=== PATIENT | female | born 1980 | race Caucasian/White ===

== ENCOUNTER 2022-09-28 11:09 | Outpatient (CLI) | payer BC, SELFPAY ==
[2022-09-28 18:50] LABS: Free T4 Free Thyroxine 1.22 ng/mL (0.78-2.19)
[2022-09-28 19:34] LABS: Alanine Aminotransferase 18 U/L (6-35); Albumin Level 4.3 g/dL (3.5-5.1); Alkaline Phosphatase 112 U/L (38-126); Anion Gap 10 mmol/L (8-16); Aspartate Amino Transferase 32 U/L (14-36); Bilirubin,Total 0.8 mg/dL (0.2-1.3); Blood Urea Nitrogen 11 mg/dL (7-17); Calcium 8.8 mg/dL (8.4-10.2); Carbon Dioxide 24 mmol/L (22-30); Chloride 101 mmol/L (98-107); Cholesterol 248 mg/dL (0-200); Estimated Glomerular Filt Rate > 60; Glucose 110 mg/dL (65-110); HDL Direct 55 mg/dL; Potassium 3.7 mmol/L (3.4-5.0); Sodium 135 mmol/L (137-145); Triglycerides 241 mg/dL (<150)
[2022-09-28 19:44] LABS: LDL Cholesterol Direct 140 mg/dL
== END 2022-09-28 11:10 | disposition home or self-care (01) ==
LOC: ANHGOSHLAB 11:11
PROVIDERS: PCP Family Medicine; Visit Provider Family Medicine
DX: E03.9 Hypothyroidism, unspecified (principal); E66.9 Obesity, unspecified; Z79.899 Other long term (current) drug therapy
CPT/HCPCS: 36415; 80053; 80061; 84439; 84443

== ENCOUNTER 2022-12-02 16:37 | Outpatient (CLI) | payer BC, SELFPAY ==
--- NOTE | ~2022-12-02 | MM_ITS ---
EXAMINATION: MM screening tiffany BI w rodolfo HISTORY: Screening TECHNIQUE: Craniocaudal and mediolateral oblique 3-D tomosynthesis images were obtained and synthetic 2-D images were generated. CAD analysis was submitted and interpreted. COMPARISON: No prior mammogram is available for comparison at this institution. BREAST PARENCHYMAL COMPOSITION: The breasts are almost entirely fatty. FINDINGS: There is no evidence of suspicious mass, calcification, or architectural distortion to sugg est malignancy in either breast. There has been no suspicious interval change. IMPRESSION: 1. No mammographic evidence of malignancy. 2. Recommend routine screening mammography in one year. BI-RADS Category 1: Negative Reviewed, dictated and finalized at location A. MINING ANALYST
== END 2022-12-02 16:38 | disposition home or self-care (01) ==
PROVIDERS: Visit Provider Family Medicine
DX: Z12.31 Encounter for screening mammogram for malignant neoplasm of breast (principal)
CPT/HCPCS: 77063; 77067

== ENCOUNTER 2022-12-10 08:54 | Outpatient (CLI) | payer BC, SELFPAY ==
--- NOTE | ~2022-12-10 | CT_ITS ---
CT Abdomen and Pelvis with contrast. History: Abdominal pain. Spiral CT of the abdomen and pelvis was performed after the administration of intravenous contrast. 1 00 cc of Omnipaque 350 was administered intravenously without complication. Dose reduction technique was used on this scan by utilizing automated exposure control and iterative reconstruction technique. The dose-length product (DLP) was 890.02 mGy-cm. Findings: Scans through the lung bases demonstrate mild atelectatic change. The liver, spleen, pancreas, adrenals and kidneys are within normal limits. Gallbladder is absent. No evidence of aortic aneurysm. No lymphadenopathy is seen. There is no evidence of bowel obstruction. There is no evidence to suggest acute appendicitis or dive rticulitis. Images through the pelvis were performed. Urinary bladder unremarkable. Patient is post hysterectomy. No pelvic mass identified. No ascites is seen. Impression: No significant abnormalities seen. Reviewed, dictated and finalized at [facility]. 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
== END 2022-12-10 08:55 | disposition home or self-care (01) ==
PROVIDERS: PCP Family Medicine; Visit Provider Family Medicine
DX: R10.30 Lower abdominal pain, unspecified (principal)
CPT/HCPCS: 74177; Q9967

== ENCOUNTER 2023-01-19 08:24 | Outpatient (CLI) | payer BC, SELFPAY ==
[2023-01-19 20:19] LABS: Alanine Aminotransferase 19 U/L (6-35); Albumin Level 4.1 g/dL (3.5-5.1); Alkaline Phosphatase 104 U/L (38-126); Anion Gap 8 mmol/L (8-16); Aspartate Amino Transferase 45 U/L (14-36); Bilirubin,Total 0.6 mg/dL (0.2-1.3); Blood Urea Nitrogen 12 mg/dL (7-17); Calcium 8.8 mg/dL (8.4-10.2); Carbon Dioxide 27 mmol/L (22-30); Chloride 101 mmol/L (98-107); Cholesterol 241 mg/dL (0-200); Estimated Glomerular Filt Rate > 60; Glucose 88 mg/dL (65-110); HDL Direct 40 mg/dL; Potassium 4.1 mmol/L (3.4-5.0); Sodium 136 mmol/L (137-145); Triglycerides 329 mg/dL (<150)
[2023-01-19 20:30] LABS: LDL Cholesterol Direct 123 mg/dL
[2023-01-19 21:21] LABS: Free T4 Free Thyroxine 1.17 ng/mL (0.78-2.19)
[2023-01-22 18:10] LABS: Gliadin AB, IgG <1.0 U/mL (<15.0); TTG IGA AB <1.0 U/mL (<15.0)
== END 2023-01-19 08:25 | disposition home or self-care (01) ==
LOC: ANHGOSHLAB 08:26
PROVIDERS: PCP Family Medicine; Visit Provider Nurse Practitioner Family
DX: R19.7 Diarrhea, unspecified (principal); E03.9 Hypothyroidism, unspecified; Z79.899 Other long term (current) drug therapy; E66.9 Obesity, unspecified
CPT/HCPCS: 36415; 80053; 80061; 83516; 84439; 84443; 86255

== ENCOUNTER 2023-01-31 00:40 | Day surgery (SDC) | payer BC, SELFPAY ==
[2023-01-19 13:36] VITALS: BMI 32.8
[2023-01-31 11:19] VITALS: BP 133/90; PULSE 77; RESP 18; TEMP 36.3; O2SAT 100; BMI 34.9
[2023-01-31] MEDS: LACTATED RINGERS 1,000 ML 150 ML IV CONT (11:27)
--- NOTE | 2023-01-31 11:43 | WPDANESEPPF ---
Anes - Initial Pre Proc Eval Procedure: Operation Date: 01/31/23 13:00 Proposed Procedures p Colonoscopy - Ji Gibson MD Date/Time: 01/31/23 11:43 Surgeon: Ji Gibson MD Pre Op Diagnosis: bilateral lower abdominal pain, diarrhea Patient Data Age: 42 Gender: F Height: 1.7 m Weight: 101.1 kg Last Vital Signs Temp 36.3 C L 01/31/23 11:19 Pulse 77 01/31/23 11:19 Resp 18 01/31/23 11:19 BP 133/90 01/31/23 11:19 Pulse Ox 100 01/31/23 11:19 O2 Del Method Room Air 01/31/23 11:19 Allergies Allergy/AdvReac Type Severity Reaction Status Date / Time erythromycin base AdvReac Severe Vomiting Verified 01/31/23 11:17 anesthesia Allergy Severe Unresponsiv Uncoded 01/19/23 13:30 e Home Medications Medication Instructions Recorded Confirmed Type albuterol sulfate 90 mcg/actuation 1 puff inhalation Q4H PRN 09/23/22 01/31/23 History aerosol inhaler Shortness Of Breath levothyroxine 75 mcg capsule 75 mcg PO DAILY #90 caps 10/07/22 01/31/23 Rx omeprazole 20 mg capsule,delayed 20 mg PO DAILY #60 caps 12/17/22 01/31/23 Rx release cholestyramine (with sugar) 4 gram 4 g PO BID diarrhea #378 grams 12/28/22 01/31/23 Rx oral powder dicyclomine 20 mg tablet 20 mg PO QID PRN abdominal pain 12/28/22 01/31/23 Rx #90 tabs estradiol 1 mg tablet 1 mg PO DAILY #90 tabs 01/10/23 01/31/23 Rx Patient hx anesthesia problems: none Family hx anesthesia problems: none Results Review: All pre-operative results and documents have been reviewed as part of the pre-operative evaluation. [facility] Past Medical History Medical History Asthma Thyroid disorder Surgical History Surgical History H/O eye surgery H/O: hysterectomy History of cholecystectomy Family History Family History Father Diabetes mellitus Hypertension Mother Breast cancer Depression Anxiety Thyroid disease Grandparent Hypertension Heart disease Cerebrovascular accident Social History Social History Smoking status: Never smoker Alcohol intake: current Alcohol use details: socially Substance use: never Substance use type: does not use Lack of Transportation: No Lack of Food: Never True Current Housing: I Have Housing Concerned About Future Housing: No Difficulty Paying Gas/Electric Bills: No Difficulty Paying for Meds: No Currently Unemployed: No Education: Master's Degree or Higher Difficulty w/ Childcare or Family Care: No Living arrangements: alone 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 Informed Consent: The patient's anesthetic plan and its attendant risks and benefits were discussed with the patient/family/POA. Questions were solicited and answers provided to the satisfaction of the patient/family/POA.
--- NOTE | 2023-01-31 12:35 | PM.HPGS ---
History of Present Illness History of Present Illness Consent: Risks, benefits, and alternatives have been discussed and questions answered. Patient agrees to proceed with procedure. Chief complaint: bilateral lower abdominal pain, diarrhea Narrative: Antonette Campbell is a 42 year old female here for first colonoscopy, had intermittent episodes of severe lower abdominal pain and diarrhea, prescribed bentyl but has not had the chance to take it. Review of Systems Constitutional: Constitutional: Denies headache(s) and Denies weakness Eyes: Eyes: Denies blurry vision ENT: Reports Normal hearing present, Denies headache(s) and Denies neck pain Cardiovascular: Cardiovascular: Denies chest pain and Denies dyspnea Respiratory: Respiratory: Denies dyspnea Gastrointestinal: Gastrointestinal: Reports no additional gastrointestinal complaints Genitourinary: Genitourinary: Denies dysuria Musculoskeletal: Musculoskeletal: Denies neck pain Integumentary/Breasts: Skin/Breast: Denies dry skin Neurologic: Reports Normal hearing present, Denies headache(s) and Denies weakness Psychiatric: Psychiatric: Denies anxiety Endocrine: Endocrine: Denies change in body appearance Hematologic/Lymphatic: Hematologic/Lymphatic: Denies easy bleeding Allergic/Immunologic: Allergic/Immunologic: Denies urticaria PMFSH Past Medical History Medical History Asthma Thyroid disorder Surgical History Surgical History H/O eye surgery H/O: hysterectomy History of cholecystectomy Family History Family History Father Diabetes mellitus Hypertension Mother Breast cancer Depression Anxiety Thyroid disease Grandparent Hypertension Heart disease Cerebrovascular accident Social History Social History Smoking status: Never smoker Alcohol intake: current Alcohol use details: socially Substance use: never Substance use type: does not use Lack of Transportation: No Lack of Food: Never True Current Housing: I Have Housing Concerned About Future Housing: No Difficulty Paying Gas/Electric Bills: No Difficulty Paying for Meds: No Currently Unemployed: No Education: Master's Degree or Higher Difficulty w/ Childcare or Family Care: No Living arrangements: alone 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/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 Gender identity (if verbalized by the patient): Female Spiritual care concerns: No Agree to blood products: Yes Meds Home Medications and Allergies Home Medications Medication Instructions Recorded Confirmed Type albuterol sulfate 90 mcg/actuation 1 puff inhalation Q4H PRN 09/23/22 01/31/23 History aerosol inhaler Shortness Of Breath levothyroxine 75 mcg capsule 75 mcg PO DAILY #90 caps 10/07/22 01/31/23 Rx omeprazole 20 mg capsule,delayed 20 mg PO DAILY #60 caps 12/17/22 01/31/23 Rx release cholestyramine (with sugar) 4 gram 4 g PO BID diarrhea #378 grams 12/28/22 01/31/23 Rx oral powder dicyclomine 20 mg tablet 20 mg PO QID PRN abdominal pain 12/28/22 01/31/23 Rx #90 tabs estradiol 1 mg tablet 1 mg PO DAILY #90 tabs 01/10/23 01/31/23 Rx Allergies Allergy/AdvReac Type Severity Reaction Status Date / Time erythromycin base AdvReac Severe Vomiting Verified 01/31/23 11:17 anesthesia Allergy Severe Unresponsiv Uncoded 01/19/23 13:30 e Vital Signs Vital Signs - 24 hr 01/31/23 11:19 Temperature 97.3 F L Pulse Rate 77 Respiratory Rate 18 Blood Pressure 133/90 Pulse Oximetry 100 Oxygen Delivery Room Air Exam Const: General: comfortable and no acute distress HENMT: Face/Nose/Sinus: Normal nares present Eyes: General: appearance normal, both eyes and all related structures Neck: Neck: no JVD
[2023-01-31 12:51] VITALS: BP 111/83; PULSE 80; RESP 17; O2SAT 98
[2023-01-31 13:01] VITALS: BP 131/83; PULSE 72; RESP 22; O2SAT 98
[2023-01-31 13:11] VITALS: BP 125/85; PULSE 69; RESP 20; O2SAT 98
== END 2023-01-31 13:15 | disposition home or self-care (01) ==
PROVIDERS: PCP Family Medicine; Visit Provider Internal Medicine Gastroenterology
PROC: 0DJD8ZZ Inspection of Lower Intestinal Tract, Via Natural or Artificial Opening Endoscopic (ICD-10-PCS; CPT 45378; principal; 2023-01-31 13:00)
DX: R10.30 Lower abdominal pain, unspecified (principal); R19.7 Diarrhea, unspecified; K64.8 Other hemorrhoids; J45.909 Unspecified asthma, uncomplicated; Z90.49 Acquired absence of other specified parts of digestive tract
CPT/HCPCS: 45380; 88305; J2704; J7120

== ENCOUNTER 2023-04-28 10:44 | Outpatient (CLI) | payer BC, SELFPAY ==
[2023-04-28 17:00] LABS: Kit Draw Collected
== END 2023-04-28 10:45 | disposition home or self-care (01) ==
LOC: ANHGOSHLAB 10:46
PROVIDERS: PCP Family Medicine; Visit Provider Family Medicine
DX: D64.9 Anemia, unspecified (principal); E78.5 Hyperlipidemia, unspecified; E03.9 Hypothyroidism, unspecified; R74.8 Abnormal levels of other serum enzymes; Z79.899 Other long term (current) drug therapy
CPT/HCPCS: 36415

== ENCOUNTER 2023-05-09 13:34 | Outpatient (CLI) | payer BC, SELFPAY ==
--- NOTE | ~2023-05-09 | CT_ITS ---
Noncontrast CT scan of the right foot CLINICAL HISTORY: Fracture of navicular bone TECHNIQUE: Axial noncontrast imaging of the right foot performed. Sagittal and coronal reformatted im ages were constructed. Dose reduction technique was used on this scan by utilizing automated exposure control and iterative reconstruction technique. The dose-length product (DLP) was 362.83 mGy-cm. Findings: There is a fracture at the lateral aspect of the navicular bone, minimally displaced, witho ut definite callus formation. There is a large probable type II os navicular medially. Remaining osseous structures are unremarkable. Joint spaces are preserved. No gross soft tissue abnormality evident. IMPRESSION: Probable nearly nondisplaced fracture the lateral aspect of navicular bone, without significant callu s formation evident. Continued follow-up advised to assess for healing. Correlation with any prior ex aminations would be useful. No prior exams are available for comparison at this institution. Probable large type II os navicular. Reviewed, dictated and finalized at [facility]. IMPRESSION: Probable nearly nondisplaced fracture the lateral aspect of navicular bone, wit hout significant callus formation evident. Continued follow-up advised to asses s for healing. Correlation with any prior examinations would be useful. No prio r exams are available for comparison at this institution. Probable large type II os navicular.
== END 2023-05-09 13:35 | disposition home or self-care (01) ==
PROVIDERS: PCP Family Medicine; Visit Provider Podiatrist Foot & Ankle Surgery
DX: S92.251 Displaced fracture of navicular [scaphoid] of right foot (principal); X58.XXXD Exposure to other specified factors, subsequent encounter
CPT/HCPCS: 73700

== ENCOUNTER 2024-01-03 08:22 | Outpatient (CLI) | payer OTHER, SELFPAY ==
[2024-01-03 11:47] LABS: Alanine Aminotransferase 30 U/L (6-35); Alkaline Phosphatase 105 U/L (38-126); Anion Gap 7 mmol/L (8-16); Aspartate Amino Transferase 67 U/L (14-36); Bilirubin,Total 0.6 mg/dL (0.2-1.3); Blood Urea Nitrogen 11 mg/dL (7-17); Calcium 8.8 mg/dL (8.4-10.2); Carbon Dioxide 27 mmol/L (22-30); Chloride 104 mmol/L (98-107); Cholesterol 166 mg/dL (0-200); Estimated Glomerular Filt Rate > 60; Glucose 121 mg/dL (65-110); HDL Direct 39 mg/dL; Potassium 3.8 mmol/L (3.4-5.0); Sodium 138 mmol/L (137-145); Triglycerides 209 mg/dL (<150)
[2024-01-03 11:47] LABS: Hematocrit 46.4 % (37.0-47.0); Hemoglobin 14.9 g/dL (12.0-15.0); Mean Corpuscular HGB Conc 32.1 g/dl (32-36); Mean Corpuscular Hemoglobin 30.1 pg (26-34); Mean Corpuscular Volume 93.7 fl (80-100); Platelet Count Result 255 k/mm3 (150-375); Red Blood Count 4.95 M/mm3 (4.2-5.4); Red Cell Distribution Width 12.9 % (11.5-14.5); White Blood Count 6.5 K/mm3 (4.5-10.0)
[2024-01-03 11:57] LABS: LDL Cholesterol Direct 91 mg/dL
[2024-01-03 12:03] LABS: Vitamin D 25 Hydroxy 32.5 ng/mL
[2024-01-03 12:39] LABS: Hemoglobin A1C 6.4 % (<5.7)
== END 2024-01-03 08:23 | disposition home or self-care (01) ==
LOC: ANHGOSHLAB 08:23
PROVIDERS: PCP Family Medicine; Visit Provider Nurse Practitioner
DX: Z00.00 Encounter for general adult medical examination without abnormal findings (principal); E55.9 Vitamin D deficiency, unspecified
CPT/HCPCS: 36415; 80053; 80061; 82306; 83036; 84443; 85027

== ENCOUNTER 2024-01-04 14:53 | Outpatient (CLI) | payer OTHER, SELFPAY ==
--- NOTE | ~2024-01-04 | MM_ITS ---
EXAMINATION: MM screening tiffany BI w rodolfo HISTORY: Screening mammogram, family history of breast cancer in her mother. TECHNIQUE: Craniocaudal and mediolateral oblique 3-D tomosynthesis images were obtained and synthetic 2-D images were generated. CAD analysis was submitted and interpreted. COMPARISON: 12/02/2022 BREAST PARENCHYMAL COMPOSITION: The breasts are almost entirely fatty. FINDINGS: No suspicious mass, calcification, or architectural distortion are identified in either moisés ast to suggest malignancy. There has been no suspicious interval change. IMPRESSION: 1. No mammographic evidence of malignancy. 2. Recommend routine screening mammography in one year. BI-RADS Category 1: Negative Reviewed, dictated and finalized at location A. CLOTH INSPECTOR
== END 2024-01-04 14:54 | disposition home or self-care (01) ==
LOC: ANHIMG 14:55
PROVIDERS: PCP Family Medicine; Visit Provider Nurse Practitioner
DX: Z12.31 Encounter for screening mammogram for malignant neoplasm of breast (principal)
CPT/HCPCS: 77063; 77067

== ENCOUNTER 2024-03-27 09:04 | Outpatient (CLI) | payer OTHER, SELFPAY ==
[2024-03-27 13:58] LABS: Hematocrit 46.2 % (37.0-47.0); Hemoglobin 15.4 g/dL (12.0-15.0); Mean Corpuscular HGB Conc 33.3 g/dl (32-36); Mean Corpuscular Hemoglobin 30.4 pg (26-34); Mean Corpuscular Volume 91.3 fl (80-100); Mean Platelet Volume 10.8 fl (7.4-10.4); Platelet Count Result 259 k/mm3 (150-375); Red Blood Count 5.06 M/mm3 (4.2-5.4); White Blood Count 6.6 K/mm3 (4.5-10.0)
[2024-03-27 14:08] LABS: Alanine Aminotransferase 25 U/L (6-35); Albumin Level 4.1 g/dL (3.5-5.1); Alkaline Phosphatase 96 U/L (38-126); Anion Gap 4 mmol/L (4-12); Aspartate Amino Transferase 41 U/L (14-36); Bilirubin,Total 0.7 mg/dL (0.2-1.3); Blood Urea Nitrogen 14 mg/dL (7-17); Calcium 8.7 mg/dL (8.4-10.2); Carbon Dioxide 29 mmol/L (22-30); Chloride 103 mmol/L (98-107); Cholesterol 160 mg/dL (0-200); Estimated Glomerular Filt Rate > 60; Glucose 130 mg/dL (65-110); HDL Direct 47 mg/dL; Potassium 3.6 mmol/L (3.4-5.0); Sodium 136 mmol/L (137-145); Triglycerides 150 mg/dL (<150)
[2024-03-27 14:19] LABS: LDL Cholesterol Direct 102 mg/dL
[2024-03-27 14:57] LABS: Free T4 Free Thyroxine 1.26 ng/mL (0.78-2.19)
[2024-03-27 15:53] LABS: Hemoglobin A1C 6.2 % (<5.7)
[2024-03-30 18:04] LABS: Vitamin D 1,25 (OH)2 Total 61 pg/mL (18-72); Vitamin D2 1,25 (OH)2 10 pg/mL; Vitamin D3 1,25 (OH)2 51 pg/mL
== END 2024-03-27 09:05 | disposition home or self-care (01) ==
LOC: ANHGOSHLAB 09:06
PROVIDERS: PCP Family Medicine; Visit Provider Family Medicine
DX: E78.5 Hyperlipidemia, unspecified (principal); E03.9 Hypothyroidism, unspecified; E55.9 Vitamin D deficiency, unspecified; E66.9 Obesity, unspecified; R73.03 Prediabetes; R74.8 Abnormal levels of other serum enzymes; Z79.899 Other long term (current) drug therapy
CPT/HCPCS: 36415; 80053; 80061; 82652; 83036; 84439; 84443; 85027

== ENCOUNTER 2024-08-07 08:09 | Outpatient (CLI) | payer OTHER, SELFPAY ==
[2024-08-07 13:54] LABS: Hematocrit 46.3 % (37.0-47.0); Hemoglobin 15.2 g/dL (12.0-15.0); Mean Corpuscular HGB Conc 32.8 g/dl (32-36); Mean Corpuscular Hemoglobin 30.4 pg (26-34); Mean Corpuscular Volume 92.6 fl (80-100); Mean Platelet Volume 10.9 fl (7.4-10.4); Platelet Count Result 257 k/mm3 (150-375); Red Cell Distribution Width 13.2 % (11.5-14.5); White Blood Count 5.8 K/mm3 (4.5-10.0)
[2024-08-07 14:09] LABS: Hemoglobin A1C 6.5 % (<5.7)
[2024-08-07 14:28] LABS: Alanine Aminotransferase 31 U/L (6-35); Albumin Level 4.1 g/dL (3.5-5.1); Alkaline Phosphatase 116 U/L (38-126); Anion Gap 12 mmol/L (4-12); Aspartate Amino Transferase 64 U/L (14-36); Bilirubin,Total 0.7 mg/dL (0.2-1.3); Blood Urea Nitrogen 13 mg/dL (7-17); Calcium 8.7 mg/dL (8.4-10.2); Carbon Dioxide 23 mmol/L (22-30); Chloride 101 mmol/L (98-107); Cholesterol 163 mg/dL (0-200); Estimated Glomerular Filt Rate > 60; Glucose 135 mg/dL (65-110); HDL Direct 41 mg/dL; Potassium 3.3 mmol/L (3.4-5.0); Sodium 136 mmol/L (137-145); Triglycerides 223 mg/dL (<150)
[2024-08-07 14:39] LABS: LDL Cholesterol Direct 86 mg/dL
[2024-08-07 14:54] LABS: Free T4 Free Thyroxine 1.13 ng/mL (0.78-2.19)
[2024-08-10 21:29] LABS: Vitamin D 1,25 (OH)2 Total 57 pg/mL (18-72); Vitamin D2 1,25 (OH)2 <8 pg/mL; Vitamin D3 1,25 (OH)2 57 pg/mL
== END 2024-08-07 08:10 | disposition home or self-care (01) ==
LOC: ANHGOSHLAB 08:10
PROVIDERS: PCP Family Medicine; Visit Provider Family Medicine
DX: R73.01 Impaired fasting glucose (principal); D64.9 Anemia, unspecified; E55.9 Vitamin D deficiency, unspecified; E78.5 Hyperlipidemia, unspecified; R74.8 Abnormal levels of other serum enzymes; E66.9 Obesity, unspecified; E03.9 Hypothyroidism, unspecified; Z79.899 Other long term (current) drug therapy
CPT/HCPCS: 36415; 80053; 80061; 82652; 83036; 84439; 84443; 85027

== ENCOUNTER 2024-12-06 08:08 | Outpatient (CLI) | payer OTHER, SELFPAY ==
[2024-12-06 11:19] LABS: Hematocrit 47.1 % (37.0-47.0); Hemoglobin 15.4 g/dL (12.0-15.0); Mean Corpuscular HGB Conc 32.7 g/dl (32-36); Mean Corpuscular Volume 91.8 fl (80-100); Platelet Count Result 284 k/mm3 (150-375); Red Blood Count 5.13 M/mm3 (4.2-5.4); Red Cell Distribution Width 13.5 % (11.5-14.5); White Blood Count 6.3 K/mm3 (4.5-10.0)
[2024-12-06 11:37] LABS: Alanine Aminotransferase 27 U/L (6-35); Alkaline Phosphatase 114 U/L (38-126); Anion Gap 9 mmol/L (4-12); Aspartate Amino Transferase 45 U/L (14-36); Bilirubin,Total 0.6 mg/dL (0.2-1.3); Blood Urea Nitrogen 11 mg/dL (7-17); Carbon Dioxide 26 mmol/L (22-30); Chloride 102 mmol/L (98-107); Cholesterol 170 mg/dL (0-200); Estimated Glomerular Filt Rate > 60; Glucose 138 mg/dL (65-110); HDL Direct 46 mg/dL; Potassium 3.9 mmol/L (3.4-5.0); Sodium 137 mmol/L (137-145); Triglycerides 169 mg/dL (<150)
[2024-12-06 11:48] LABS: LDL Cholesterol Direct 102 mg/dL
[2024-12-06 12:01] LABS: Free T4 Free Thyroxine 1.18 ng/dL (0.78-2.19)
[2024-12-06 12:07] LABS: Hemoglobin A1C 6.4 % (<5.7)
[2024-12-12 19:33] LABS: Vitamin D 1,25 (OH)2 Total 98 pg/mL (18-72); Vitamin D2 1,25 (OH)2 <8 pg/mL; Vitamin D3 1,25 (OH)2 98 pg/mL
--- OUTSIDE RECORDS SUMMARY | 2024-12-13 01:27 | XMS_ITS | Data Portability ---
Author Organization [place] [employer], Main Office Address [address] [place] [address] Care Team Providers Care Welfare Administrator Name Role Phone ANALY WYNN Primary Care Provider [phone] FADIAJOANNANALY Wolf Primary Care Provider [phone] Assessment Encounter Date Assessment Date Assessment LastModified by Organization Details LastModified Time 04/28/2023 04/28/2023 This note is dictated and transcribed by [employer]. Rectifier Operator variances may occur. Despite proofreading, typographical errors may occur. [email or web address] Not available 04/28/2023 10:59:24 05/23/2023 05/23/2023 This note is dictated and transcribed by [employer]. Rectifier Operator variances may occur. Despite proofreading, typographical errors may occur. Not available 05/25/2023 09:40:43 06/20/2023 06/20/2023 This note is dictated and transcribed by [employer]. Rectifier Operator variances may occur. Despite proofreading, typographical errors may occur. Not available 06/21/2023 09:22:50 07/04/2023 07/04/2023 This note is dictated and transcribed by [employer]. Rectifier Operator variances may occur. Despite proofreading, typographical errors may occur. Not available 07/05/2023 09:39:36 Plan of Treatment Reminders Order Date Submit Date Provider Last Modified By Organization Details Last Modified Time Details Appointments None recorded. Lab None recorded. Referral None recorded. Procedures None recorded. Surgeries None recorded. Imaging XR, foot, 3 or more view 2022 023 [email or web address] 7 [facility] [place], [facility], [place], [address], 3 11:16:21 CT, foot, w/o contrast - navicular fracture- nonunion malunion 2022 023 [facility] (Imaging), [address], [place], [address], 3 16:07:40 XR, foot, 3 or more view 2022 023 [email or web address] [facility] [place], [address], [place], [address], 3 09:41:32 XR, foot, 3 or more view 2022 0[email or web address] [facility] [place], [address], [place], [address], 3 09:44:00 Medication Orders None recorded. Patient TargetsNo targets recorded. Patient InstructionsNo instructions recorded. Reason for Referral None Reported. Results Created Date Observation Date Name Description Value Unit Range Abnormal Flag Note LastModifiedBy Organization Detail LastModifiedTime 03/28/20 23 XR, foot, 3 or more view No observ ation record ed. [email or web address] [facility] [place] [address], [place], [address], 03/28/2023 09:56:20 04/28/20 23 XR, foot, 3 or more view No observ ation record ed. [email or web address] [place] [address], [place], [address], 04/28/2023 11:15:17 05/10/20 23 05/09/2023 CT, foot, w/o contr ast No observ ation record ed. [email or web address], [place], [address], 05/18/2023 11:14:20 07/05/20 XR, foot, 3 or more view No observ ation record ed. [email or web address] [facility] [place] [address], [place], [address], 07/05/2023 09:41:30 08/09/20 XR, foot, 3 or more view No observ ation record ed. [email or web address] [facility] [place] [address], [place], [address], 08/09/2023 09:43:59 Result Notes None recorded. Problems Name Problem SNOMED Code Status Onset Date Resolution Date Notes Provider Name and Address Organization Details Recorded Time Fracture of foot 47521132 Active Italia dorsey LPN null, [employer] 3 11:51:03 Pain in right foot 2785875239514 07 Active 2022 Mal Khan DPM [address], [place], [address], [facility] 3 15:00:09 Closed fracture of navicular bone of foot 79491560 Active 2022 Mal Khan DPM [address], [place], [address], [facility] 3 15:00:16 Postoperati ve visit 892866609 Active 2022 Mal Khan DPM [address], [place], [address], [facility] 3 09:23:39 Problem Notes None recorded. Procedures Surgical History Date Name Laterality Status Provider Name and Address Organization Details Recorded Time 07/04/20 Suture Removal completed Mal Khan DPM [address], [place], [address], [facility] 07/05/2023 09:38:08 Cholecystectomy completed Italia Cristobal LPN [facility] [employer] [facility] 02/14/2023 11:49:35 Hysterectomy completed Italia Cristobal LPN [facility] [employer] [facility] 02/14/2023 11:49:40 Imaging Results Imaging Date Name Status LastModified by Organ [facility] Details LastModified Time 03/28/2023 XR, foot, 3 or more view completed [email or web address] [facility] [place] [address], [place], [address], 03/28/2023 09:56:20 04/28/2023 XR, foot, 3 or more view completed [email or web address] [facility] [place] [address], [place], [address], 04/28/2023 11:15:17 05/09/2023 CT, foot, w/o contrast completed [email or web address], [place], [address], 05/18/2023 11:14:20 07/05/2023 XR, foot, 3 or more view completed [email or web address] [facility] [place] [address], [place], [address], 07/05/2023 09:41:30 08/09/2023 XR, foot, 3 or more view completed [email or web address] [facility] [place] [address], [place], [address], 08/09/2023 09:43:59 Procedure Notes None recorded. Medical Equipment None Reported. Allergies Allergen ID Allergen Name Allergen Category Reaction Reaction Severity Criticality Documentation Date Start Date Code Code System Note Provider Name and Address Organization Details Recorded Time 42274 erythromy arnav medicatio n Not available Not available Not available 02/14/2023 4053 RxNorm RON Cronin, [place] [facility] [employer] [facility] 3 11:50:24 28189 Local anestheti c (substanc e) medicatio n Not available Not available Not available 02/14/2023 62164 7003 SNRON Kennedy, [facility] [employer] [facility] 3 11:50:46 Medications Name Sig Start Date Stop Date Status Note LastModified by Organization Details LastModified Time atorvastati n 10 mg tablet TAKE 1 TABLET BY MOUTH EVERY DAY AT BEDTIME active Not Available Not Available No t Available hydrocodone 5 mg-acetamin ophen 325 mg tablet TAKE ONE TABLET BY MOUTH EVERY 6 HOURS NEEDED FOR MODERATE PAIN active Not Available Not Available No t Available levothyroxi ne 75 mcg tablet TAKE 1 TABLET BY MOUTH DAILY active Not Available Not Available No t Available estradiol 1 mg tablet TAKE 1 TABLET BY MOUTH DAILY active Not Available Not Available No t Available dicyclomine 20 mg tablet TAKE 1 TABLET BY MOUTH FOUR TIMES DAILY NEEDED FOR ABDOMINAL PAIN active Not Available Not Available No t Available omeprazole 20 mg capsule,del ayed release TAKE 1 CAPSULE BY MOUTH DAILY active Not Available Not Available No t Available naproxen 500 mg tablet TAKE 1 TABLET BY MOUTH TWICE DAILY FOR 7 DAYS NEEDED FOR PAIN active Not Available Not Available No t Available cholestyram ine (with sugar) 4 gram oral powder TAKE 4G ORALLY TWICE A DAY FOR DIARRHEA ADMINISTE R WITH A MEAL. AVOID OTHER MEDS 1 HOUR BEFORE OR 4-6 HOURS AFTER DOSE. active Not Available Not Available No t Available nitrofurant oin monohydrate /macrocryst als 100 mg capsule TAKE 1 CAPSULE BY MOUTH EVERY 12 HOURS FOR 5 DAYS. TAKE WITH FOOD 02/14 completed Not Available Not Available Not Available Vitals Date Recorded Body height Body mass index (BMI) Body weight Heart rate Respiratory rate Oxygen saturation Oxygen saturation in Arterial blood by Pulse oximetry Systolic blood pressure Diastolic blood pressure Provider Name and Address Organization Details Last Updated DateTime 3 170.18 cm 33.7 kg/m2 22748.3 6 g 83 /min 14 /min 99 % 99 % 118 mm[Hg] 87 mm[Hg] Bhavana Hinkle [facility] [employer] 3 10:59:33 Date Recorded Body height Body mass index (BMI) Body weight Heart rate Respiratory rate Oxygen saturation Oxygen saturation in Arterial blood by Pulse oximetry Systolic blood pressure Diastolic blood pressure Provider Name and Address Organization Details Last Updated DateTime 3 170.18 cm 33.7 kg/m2 82109.3 6 g 81 /min 14 /min 99 % 99 % 139 mm[Hg] 88 mm[Hg] Bhavana Hinkle [facility] [employer] [facility] 3 17:08:14 Date Recorded Body height Body mass index (BMI) Body weight Heart rate Respiratory rate Oxygen saturation Oxygen saturation in Arterial blood by Pulse oximetry Systolic blood pressure Diastolic blood pressure Provider Name and Address Organization Details Last Updated DateTime 3 170.18 cm 33.7 kg/m2 11823.3 6 g 103 /min 14 /min 99 % 99 % 143 mm[Hg] 76 mm[Hg] Bhavana Hinkle [facility] [employer] [facility] 3 17:38:47 Date Recorded Body height Body mass index (BMI) Body weight Heart rate Respiratory rate Oxygen saturation Oxygen saturation in Arterial blood by Pulse oximetry Systolic blood pressure Diastolic blood pressure Provider Name and Address Organization Details Last Updated DateTime 3 170.18 cm 33.7 kg/m2 69406.3 6 g 95 /min 14 /min 98 % 98 % 134 mm[Hg] 85 mm[Hg] Bhavana Hinkle [facility] [employer] [facility] 3 17:19:21 Date Recorded Body height Body mass index (BMI) Body weight Heart rate Respiratory rate Body temperature Oxygen saturation Oxygen saturation in Arterial blood by Pulse oximetry Systolic blood pressure Diastolic blood pressure Provider Name and Address Organization Details Last Updated DateTime 3 170.18 cm 33.7 kg/m2 41212.3 6 g 95 /min 14 /min 98 [degF] 98 % 98 % 130 mm[Hg] 85 mm[Hg] Jessi Miranda [facility] [employer] [facility] 3 17:40:23 Social History Question Answer Notes LastModified by Organizat ion Details LastModified Time Tobacco Smoking Status Never Smoker RON Taylor, [facility] [employer] [facility] 02/14/2023 11:52:42 What Is Your Level Of Alcohol Consumption? Occasional [email or web address] Information not available 02/14/2023 Has Tobacco Cessation Counseling Been Provided? No [email or web address] Information not available 02/14/2023 Do You Or Have You Ever Used Any Other Forms Of Tobacco Or Nicotine? No [email or web address] Information not available 02/14/2023 Sex: Unknown Functional Status None recorded. Mental Status None recorded. Family History Relationship Description Onset Age of this Age Resolved Age Notes LastModified by Organization Details LastModified Time Father Diabetes mellitus [email or web address] Not available 11:51:11 Unspecified Relation Cerebrovascu lar accident elisa chapman [email or web address] Not available 02/14/2023 11:51:27 Unspecified Relation Arthritis elisa chapman [email or web address] Not available 02/14/2023 11:51:37 Unspecified Relation Hypertensive disorder elisa chapman [email or web address] Not available 02/14/2023 11:51:51 Unspecified Relation Heart disease elisa chapman [email or web address] Not available 02/14/2023 11:52:07 Unspecified Relation Malignant neoplastic disease elisa chapman [email or web address] Not available 02/14/2023 11:52:24 Mother Malignant neoplastic disease [email or web address] Not available 11:52:24 Medical History No medical history recorded. Gynecological HistoryNo gynecological history recorded. Obstetrics History GPAL:G 0 P 0 0 0 0 Past Encounters Encounter ID Performer Location Encounter Start Date Encounter Closed Date Diagnosis/Indication Diagnosis SNOMED-CT Code Diagnosis ICD10 Code Diagnosis Note [id number] Mal Khan DPM [facility] [place] [address] [place] [address] 02/14/2023 11:10:34 02/14/2023 16:43:28 Closed fracture of navicular bone of foot 62923227 S92.251A mild avulsion fracture mildly displaced to the dorsal aspect of the central navicularX -rays reviewed todayConti nue crutches and a cam boot nonweightb earing for 2 weeksfollo w-up in 2 weeks for repeat x-rays Pain in right foot 73840 38967 55467 M79.671 as above [id number] Mal Khan DPM [facility] [place] [address] [place] [address] 02/28/2023 14:33:15 02/28/2023 16:12:05 Closed fracture of navicular bone of foot 19464703 S92.251A mild avulsion fracture mildly displaced to the dorsal aspect of the central navicularX -rays reviewed today -- No significan t signs of healingCon tinue cam boot 3 weeksfollo w-up in 3 weeks follow-up x-rays [id number] Mal Khan DPM [facility] [place] [address] [place] [address] 03/28/2023 09:12:44 03/28/2023 09:58:40 Closed fracture of navicular bone of foot 67578215 S92.251A mild avulsion fracture mildly displaced to the dorsal aspect of the central navicularX -rays reviewed today -- No significan t signs of healing Or changes in alignmentC ontinue cam boot 3-4weeksre viewed treatment options if the patient does not resolve her pain by next visit we will plan to surgically excise the piece of bonefollow -up in 3-4 weeks follow-up x-rays [id number] Mal Khan DPM [facility] [place] [address] [place] [address] 04/28/2023 10:52:46 04/28/2023 11:31:58 Closed fracture of navicular bone of foot 55451737 S92.251P mild avulsion intra-apolinar cular fracture mildly displaced to the dorsal aspect of the central navicularn o significan t signs of healingCon tinue cam bootRice therapyObt ain CT for surgical planningfo llow-up post CT to review and discuss treatment options surgically Pain in right foot 56247 46222 29569 M79.671 as above [id number] Mal Khan DPM [facility] [place] [address] [place] [address] 05/23/2023 16:59:50 05/25/2023 11:49:13 Closed fracture of navicular bone of foot 58243322 S92.251K mild avulsion intra-apolinar cular fracture mildly displaced Nonunion to the dorsal aspect of the central navicularn o significan t signs of healingCon tinue cam bootRice therapyCT reviewed with the patientKhushbool l obtain surgical clearancep denis open reduction internal fixation versus removal avulsion fracturefo llow-up post surgeryall risks, benefits, complicati ons were reviewed with the patient including but not limited to the following nonhealing wound, infection, arthritis, nerve injury, continued foot pain, painful scar, thick discolored scar, bone infection, loss of foot, CRPS. [id number] Mal Khan DPM [facility] [place] [address] [place] [address] 06/20/2023 17:32:00 06/21/2023 10:57:21 Closed fracture of navicular bone of foot 48015298 S92.251K surgery date June 17, 2023status post 3 daysdressi ngs changed and cleaned with ChloraPrep keep dressings clean dry and intact for 2 weeksconti nue minimal weight-gilberto ring to the heel onlyfollow -up in 2 weeks for suture removal, repeat x-rays in 2 weeks Postoperative visit 1836 09036 Z09 as above [id number] Mal Khan DPM [facility] [place] [address] [place] [address] 07/04/2023 17:11:17 07/05/2023 12:05:48 Closed fracture of navicular bone of foot 61319887 S92.251K surgery date June 17, 2023status post 2 weekssutur es removedSte ri-Strips appliedpat ient may shower no soakingfol low-up in 4 weeks for repeat x-rays Postoperative visit 1836 11435 Z09 status post 2 weeks open reduction internal fixation navicular, rightconti nue weight-gilberto ring to the heel only [id number] Mal Khan DPM [facility] [place] [address] [place] [address] 08/01/2023 17:04:41 08/09/2023 15:26:43 Postoperative visit 089731924 Z09 open reduction internal fixation navicular, rightnorma l shoe gear transition if has pain with normal shoe gear continue cam boot for 2-3 weeks Closed fra cture of navicular bone of foot 17934264 S92.251K surgery date June 17, 2023repeat x-rays reviewed with the patientFol low-up as needed Health Concerns Section Related Observation LastModified by Organization Detai ls LastModified Time None Recorded Concern Status LastModified by Organization Details LastModified Time None Recorded Advance Directives Directive None Recorded Payers Encounter Date Sequence Insurance Name Policy Number Policy Lin Covered Member ID Lin Member ID Guarantor Name 04/28/2023 [facility] [id number] Antonette Campbell [id number] Antonette Campbell 05/23/2023 1 [facility] [id number] Antonette Pedrozaith [id number] Antonettealison PedrozaCampbell 06/20/2023 1 [facility] [id number] Antonette Campbell [id number] Antonette Campbell 07/04/2023 1 [facility] [id number] Antonette Campbell [id number] Antonette Campbell 08/01/2023 1 [facility] [id number] Antonette Campbell [id number] Antonettealison PedrozaCampbell Notes Date Note Type Note Provider Name and Address Organization Details Recorded Time 04/28/2023 text/html . Patient is a 42-year-old female who returns the office for follow-up on right foot navicular avulsion fracture that is intra-articular. 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 Patient has been in a protective cam boot and states that she has continued to have pain despite minimal walking and cam boot therapy. I discussed surgical options with her in detail today which include but not limited to the following open reduction internal fixation versus movable of the bone avulsion piece. We will obtain a CT for further evaluation of her foot for surgical planning. Mal Khan DPM [address] [place] [address], [facility] [address], [place], [address], [facility] [employer] 04/28/2023 11:17:35 05/23/2023 text/html . Patient is a 42-year-old female who returns the office for closed fracture of the navicular with a non union of a avulsion fracture that is intra-articular extension. Patient continues have discomfort. Patient states when she is weight-bearing she has mild pain. Patient had a CT which was reviewed and it does not appear to be big enough for repair I did review options with the patient including continued conservative therapy versus surgical therapy which includes removal of the bone pain verses open reduction internal fixation. Patient states that she would like to explore surgical options due to the nonhealing which I agree with and if the piece is big enough we will throw hardware to stabilize it if not we will just remove the piece of bone. Patient denies any other pedal complaints. Patient is aware of all risks, complications including but not limited to the following arthritis, continued pain. Mal Khan DPM [address], [place], [address], [employer] [facility] [employer] 05/25/2023 09:42:35 06/20/2023 text/html s/p navicular fracture orif, 3 days . Patient is a 42-year-old female who returns the office for follow-up on postoperative open reduction internal fixation status post 3 days for navicular fracture of the right foot. Patient states overall she is doing well. Patient has some mild bruising along the medial aspect of the foot. Patient denies any calf pain or signs of infection. Patient denies any fever, chills, nausea vomiting. Patient denies any other pedal complaints. Mal Khan DPM [address], [place], [address], [employer] 06/21/2023 09:24:00 07/04/2023 text/html . Patient is a 42-year-old female who returns the office for follow-up on open reduction internal fixation of fracture repair to right navicular. Patient has a healed incision. Patient is status post 2 weeks. Patient states she has been doing well. Patient denies any calf pain or difficulties walking. Patient states that overall she has improved in terms of her pain level. Patient denies any other complaints. Mal Khan DPM [address], [place], [address], [facility] [employer] 07/05/2023 09:42:09 08/01/2023 text/html . Patient is a 42-year-old female who returns the office for follow-up on closed fracture of the navicular bone. Patient had repeat x-rays which shows healed fracture with intact hardware without failure. Patient states her pain is resolved. Patient denies any other pedal complaints. Mal Khan DPM [address] [facility] [address], [place], [address], [place] [facility] 08/09/2023 09:44:04 OBGyn Episode No OBEpisode recorded.
== END 2024-12-06 08:09 | disposition home or self-care (01) ==
LOC: ANHGOSHLAB 08:09
PROVIDERS: PCP Family Medicine; Visit Provider Family Medicine
DX: E55.9 Vitamin D deficiency, unspecified (principal); E11.9 Type 2 diabetes mellitus without complications; D64.9 Anemia, unspecified; E78.5 Hyperlipidemia, unspecified; E87.6 Hypokalemia; R74.8 Abnormal levels of other serum enzymes; E66.9 Obesity, unspecified; E03.9 Hypothyroidism, unspecified
CPT/HCPCS: 36415; 80053; 80061; 82652; 83036; 84439; 84443; 85027

== ENCOUNTER 2025-01-10 08:09 | Outpatient (CLI) | payer OTHER, SELFPAY ==
--- NOTE | ~2025-01-10 | MM_ITS ---
EXAMINATION: MM screening tiffany BI w rodolfo HISTORY: Screening TECHNIQUE: Craniocaudal and mediolateral oblique 3-D tomosynthesis images were obtained and synthetic 2-D images were generated. CAD analysis was submitted and interpreted. COMPARISON: Comparison to multiple prior studies sequentially, with oldest reviewed study dated 2022. BREAST PARENCHYMAL COMPOSITION: Not Dense: The breasts are almost entirely fatty. FINDINGS: There is no evidence of suspicious mass, calcification, or architectural distortion to sugg est malignancy in either breast. There has been no suspicious interval change. IMPRESSION: 1. No mammographic evidence of malignancy. 2. Recommend routine screening mammography in one year. BI-RADS Category 1: Negative Reviewed, dictated and finalized at location B. ND [employer]
--- OUTSIDE RECORDS SUMMARY | 2025-01-10 08:13 | XMS_ITS | Data Portability ---
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 [employer] variances may occur. Despite proofreading, typographical errors may occur. [email or web address] Not available 04/28/2023 10:59:24 05/23/2023 05/23/2023 This note is dictated and transcribed by [employer]. [employer] variances may occur. Despite proofreading, typographical errors may occur. Not available 05/25/2023 09:40:43 06/20/2023 06/20/2023 This note is dictated and transcribed by [employer]. [employer] variances may occur. Despite proofreading, typographical errors may occur. Not available 06/21/2023 09:22:50 07/04/2023 07/04/2023 This note is dictated and transcribed by [employer]. [employer] variances may occur. Despite proofreading, typographical errors may occur. Not available 07/05/2023 09:39:36 Plan of Treatment Reminders Order Date Submit Date Provider Last Modified By Organization Details Last Modified Time Details Appointments None recorded. Lab None recorded. Referral None recorded. Procedures None recorded. Surgeries None recorded. Imaging XR, foot, 3 or more view 2022 023 [email or web address] 7 [facility] [place], [facility], [place], [address], 3 09:44:00 XR, foot, 3 or more view [address] [facility] [place], [address], [address], 3 09:41:32 XR, foot, 3 or more view [address] [facility] [place], [address], [place], [address], 3 11:16:21 CT, foot, w/o contrast - navicular fracture- nonunion malunion 2022 023 [facility] (Imaging), [address] [facility] [address], [place], [address], 3 16:07:40 Medication Orders None recorded. Patient TargetsNo targets recorded. Patient InstructionsNo instructions recorded. Reason for Referral None Reported. Results Created Date Observation Date Name Description Value Unit Range Abnormal Flag Note LastModifiedBy Organization Detail LastModifiedTime 03/28/20 23 XR, foot, 3 or more view No observ ation record ed. [email or web address] [facility] [place] [address] [facility] [address], [place], [address], 03/28/2023 09:56:20 04/28/20 23 XR, foot, 3 or more view No observ ation record ed. [email or web address] [facility] [place] [address] [facility] [address], [place], [address], 04/28/2023 11:15:17 05/10/20 23 05/09/2023 CT, foot, w/o contr ast No observ ation record ed. [email or web address] [facility] [address], [place], [address], 05/18/2023 11:14:20 07/05/20 XR, foot, 3 or more view No observ ation record ed. [email or web address] [facility] [place] [address], [place], [address], 07/05/2023 09:41:30 08/09/20 XR, foot, 3 or more view No observ ation record ed. [email or web address] [facility] [place] [address], [place], [address], 08/09/2023 09:43:59 Result Notes None recorded. Problems Name Problem SNOMED Code Status Onset Date Resolution Date Notes Provider Name and Address Organization Details Recorded Time Fracture of foot 89543782 Active Italia dorsey LPN null, [employer] 3 11:51:03 Pain in right foot 9564242599487 07 Active 2022 Mal Khan DPM [address], [place], [address], [employer] 3 15:00:09 Closed fracture of navicular bone of foot 17885313 Active 2022 Mal Khan DPM [address], [place], [address], [employer] 3 15:00:16 Postoperati ve visit 897639841 Active 2022 Mal Khan DPM [address], [place], [address], [employer] 3 09:23:39 Problem Notes None recorded. Procedures Surgical History Date Name Laterality Status Provider Name and Address Organization Details Recorded Time 07/04/20 Suture Removal completed Mal Khan DPM [address], [place], [address], [employer] 07/05/2023 09:38:08 Cholecystectomy completed Italia Cristobal LPN [facility] [employer] [facility] 02/14/2023 11:49:35 Hysterectomy completed Italia Cristobal LPN [facility] [employer] [facility] 02/14/2023 11:49:40 Imaging Results Imaging Date Name Status LastModified by Organ [facility] Details LastModified Time 03/28/2023 XR, foot, 3 or more view completed [email or web address] [facility] [place] [address], [place], [address], 03/28/2023 09:56:20 04/28/2023 XR, foot, 3 or more view completed [email or web address] [facility] [place] [address], [place], [address], 04/28/2023 11:15:17 05/09/2023 CT, foot, w/o contrast completed [email or web address], [place], [address], 05/18/2023 11:14:20 07/05/2023 XR, foot, 3 or more view completed [email or web address] [facility] [place] [address], [place], [address], 07/05/2023 09:41:30 08/09/2023 XR, foot, 3 or more view completed [email or web address] [facility] [place] [address], [place], [address], 08/09/2023 09:43:59 Procedure Notes None recorded. Medical Equipment None Reported. Allergies Allergen ID Allergen Name Allergen Category Reaction Reaction Severity Criticality Documentation Date Start Date Code Code System Note Provider Name and Address Organization Details Recorded Time 15561 erythromy arnav medicatio n Not available Not available Not available 02/14/2023 4053 RxNorm RON Cronin, [place] [facility] [employer] [facility] 3 11:50:24 53403 Local anestheti c (substanc e) medicatio n Not available Not available Not available 02/14/2023 36194 7003 SNRON Kennedy, [facility] [employer] [facility] 3 11:50:46 Medications Name Sig Start Date [...] Updated DateTime 3 170.18 cm 33.7 kg/m2 29140.3 6 g 83 /min 14 /min 99 % 99 % 118 mm[Hg] 87 mm[Hg] Bhavana Hinkle [facility] 3 10:59:33 Date Recorded Body height Body mass index (BMI) Body weight Heart rate Respiratory rate Oxygen saturation Oxygen saturation in Arterial blood by Pulse oximetry Systolic blood pressure Diastolic blood pressure Provider Name and Address Organization Details Last Updated DateTime 3 170.18 cm 33.7 kg/m2 97311.3 6 g 81 /min 14 /min 99 % 99 % 139 mm[Hg] 88 mm[Hg] Bhavana Hnikle [facility] [employer] [facility] 3 17:08:14 Date Recorded Body height Body mass index (BMI) Body weight Heart rate Respiratory rate Oxygen saturation Oxygen saturation in Arterial blood by Pulse oximetry Systolic blood pressure Diastolic blood pressure Provider Name and Address Organization Details Last Updated DateTime 3 170.18 cm 33.7 kg/m2 40358.3 6 g 103 /min 14 /min 99 % 99 % 143 mm[Hg] 76 mm[Hg] Bhavana Hinkle [facility] [employer] [facility] 3 17:38:47 Date Recorded Body height Body mass index (BMI) Body weight Heart rate Respiratory rate Oxygen saturation Oxygen saturation in Arterial blood by Pulse oximetry Systolic blood pressure Diastolic blood pressure Provider Name and Address Organization Details Last Updated DateTime 3 170.18 cm 33.7 kg/m2 61007.3 6 g 95 /min 14 /min 98 % 98 % 134 mm[Hg] 85 mm[Hg] Bhavana Hinkle [facility] [employer] [facility] 3 17:19:21 Date Recorded Body height Body mass index (BMI) Body weight Heart rate Respiratory rate Body temperature Oxygen saturation Oxygen saturation in Arterial blood by Pulse oximetry Systolic blood pressure Diastolic blood pressure Provider Name and Address Organization Details Last Updated DateTime 3 170.18 cm 33.7 kg/m2 82165.3 6 g 95 /min 14 /min 98 [degF] 98 % 98 % 130 mm[Hg] 85 mm[Hg] Jessi Miranda [facility] [employer] [facility] 3 17:40:23 Social History Question Answer Notes LastModified by Organizat ion Details LastModified Time Tobacco Smoking Status Never Smoker RON Taylor, [facility] [employer] [facility] 02/14/2023 11:52:42 What Is Your Level Of Alcohol Consumption? Occasional [email or web address] Information not available 02/14/2023 Has Tobacco Cessation Counseling Been Provided? No [email or web address] Information not available 02/14/2023 Do You Or Have You Ever Used Any Other Forms Of Tobacco Or Nicotine? No [email or web address] Information not available 02/14/2023 Sex: Unknown Functional Status None recorded. Mental Status None recorded. Family History Relationship Description Onset Age of this Age Resolved Age Notes LastModified by Organization Details LastModified Time Father Diabetes mellitus [email or web address] Not available 11:51:11 Unspecified Relation Cerebrovascu lar accident elisa chapman [email or web address] Not available 02/14/2023 11:51:27 Unspecified Relation Arthritis elisa chapman [email or web address] Not available 02/14/2023 11:51:37 Unspecified Relation Hypertensive disorder elisa chapman [email or web address] Not available 02/14/2023 11:51:51 Unspecified Relation Heart disease elisa chapman [email or web address] Not available 02/14/2023 11:52:07 Unspecified Relation Malignant neoplastic disease elisa chapman [email or web address] Not available 02/14/2023 11:52:24 Mother Malignant neoplastic disease [email or web address] Not available 11:52:24 Medical History No medical history recorded. Gynecological HistoryNo gynecological history recorded. Obstetrics History GPAL:G 0 P 0 0 0 0 Past Encounters Encounter ID Performer Location Encounter Start Date Encounter Closed Date Diagnosis/Indication Diagnosis SNOMED-CT Code Diagnosis ICD10 Code Diagnosis Note [id number] Mal Khan DPM [facility] Pod[facility] [place] [address] [place] [address] 02/14/2023 11:10:34 02/14/2023 16:43:28 Closed fracture of navicular bone of foot 81102554 S92.251A mild avulsion fracture mildly displaced to the dorsal aspect of the central navicularX -rays reviewed todayConti nue crutches and a cam boot nonweightb earing for 2 weeksfollo w-up in 2 weeks for repeat x-rays Pain in right foot 01495 02186 91191 M79.671 as above [id number] Mal Khan DPM [facility] [place] [address] [place] [address] 02/28/2023 14:33:15 02/28/2023 16:12:05 Closed fracture of navicular bone of foot 77099206 S92.251A mild avulsion fracture mildly displaced to the dorsal aspect of the central navicularX -rays reviewed today -- No significan t signs of healingCon tinue cam boot 3 weeksfollo w-up in 3 weeks follow-up x-rays [id number] Mal Khan DPM [facility] [place] [address] [place] [address] 03/28/2023 09:12:44 03/28/2023 09:58:40 Closed fracture of navicular bone of foot 60861817 S92.251A mild avulsion fracture mildly displaced to the dorsal aspect of the central navicularX -rays reviewed today -- No significan t signs of healing Or changes in alignmentC ontinue cam boot 3-4weeksre viewed treatment options if the patient does not resolve her pain by next visit we will plan to surgically excise the piece of bonefollow -up in 3-4 weeks follow-up x-rays [id number] Mal Khan DPM [facility] [place] [address] [place] [address] 04/28/2023 10:52:46 04/28/2023 11:31:58 Closed fracture of navicular bone of foot 15678356 S92.251P mild avulsion intra-apolinar cular fracture mildly displaced to the dorsal aspect of the central navicularn o significan t signs of healingCon tinue cam bootRice therapyObt ain CT for surgical planningfo llow-up post CT to review and discuss treatment options surgically Pain in right foot 63528 25950 93235 M79.671 as above [id number] Mal Khan DPM [facility] [place] [address] [place] [address] 05/23/2023 16:59:50 05/25/2023 11:49:13 Closed fracture of navicular bone of foot 30517593 S92.251K mild avulsion intra-apolinar cular fracture mildly [...] scar, bone infection, loss of foot, CRPS. [id number] Mal Khan DPM [facility] [place] [address] [place] [address] 06/20/2023 17:32:00 06/21/2023 10:57:21 Closed fracture of navicular bone of foot 39997215 S92.251K surgery date June 17, 2023status post 3 daysdressi ngs changed and cleaned with ChloraPrep keep dressings clean dry and intact for 2 weeksconti nue minimal weight-gilberto ring to the heel onlyfollow -up in 2 weeks for suture removal, repeat x-rays in 2 weeks Postoperative visit 1836 77743 Z09 as above [id number] Mal Khan DPM [facility] Pod[facility] [place] [address] [place] [address] 07/04/2023 17:11:17 07/05/2023 12:05:48 Closed fracture of navicular bone of foot 41637549 S92.251K surgery date June 17, 2023status post 2 weekssutur es removedSte ri-Strips appliedpat ient may shower no soakingfol low-up in 4 weeks for repeat x-rays Postoperative visit 1836 11171 Z09 status post 2 weeks open reduction internal fixation navicular, rightconti nue weight-gilberto ring to the heel only [id number] Mal Khan DPM [facility] Pod[facility] [place] [address] [place] [address] 08/01/2023 17:04:41 08/09/2023 15:26:43 Postoperative visit 596317622 Z09 open reduction internal fixation navicular, rightnorma l shoe gear transition if has pain with normal shoe gear continue cam boot for 2-3 weeks Closed fra cture of navicular bone of foot 93019076 S92.251K surgery date June 17, 2023repeat x-rays reviewed with the patientFol low-up as needed Health Concerns Section Related Observation LastModified by Organization Detai ls LastModified Time None Recorded Concern Status LastModified by Organization Details LastModified Time None Recorded Advance Directives Directive None Recorded Payers Encounter Date Sequence Insurance Name Policy Number Policy Lin Covered Member ID Lin Member ID Guarantor Name 04/28/2023 1 [facility]: (PPO) [id number] Antonette Campbell [id number] Antonette Campbell 05/23/2023 1 [facility] [id number] Antonette Pedrozaith [id number] Antonettealison PedrozaCampbell 06/20/2023 1 [facility] [id number] Antonette Campbell [id number] Antonette Campbell 07/04/2023 1 [facility] [id number] Antonette Campbell [id number] Antonette Campbell 08/01/2023 1 [facility] [id number] Antonette Campbell [id number] Antonettealison PedrozaCampbell Notes Date Note Type Note [...] foot for surgical planning. Mal Khan DPM [address] [place] [address], [facility] [address], [place], [address], [facility] [employer] 04/28/2023 11:17:35 05/23/2023 text/html . Patient is [...] Khan DPM [address], [place], [address], [employer] [facility] 05/25/2023 09:42:35 06/20/2023 text/html s/p navicular fracture [...] Khan DPM [address], [place], [address], [employer] [facility] 06/21/2023 09:24:00 07/04/2023 text/html . Patient is [...] Khan DPM [address], [place], [address], [employer] [facility] 07/05/2023 09:42:09 08/01/2023 text/html . Patient is a 42-year-old female who returns the office for follow-up on closed fracture of the navicular bone. Patient had repeat x-rays which shows healed fracture with intact hardware without failure. Patient states her pain is resolved. Patient denies any other pedal complaints. Mal Khan DPM [address] [facility] [address], [place], [address], [place] [facility] 08/09/2023 09:44:04 OBGyn Episode No OBEpisode recorded.
== END 2025-01-10 08:10 | disposition home or self-care (01) ==
LOC: ANHIMG 08:11
PROVIDERS: PCP Family Medicine; Visit Provider Family Medicine
DX: Z12.31 Encounter for screening mammogram for malignant neoplasm of breast (principal)
CPT/HCPCS: 77063; 77067

== ENCOUNTER 2025-05-02 09:17 | Outpatient (CLI) | payer OTHER, SELFPAY ==
--- OUTSIDE RECORDS SUMMARY | 2025-05-02 09:52 | XMS_ITS | Data Portability ---
Author Organization [place] [employer], Main Office Address [address] [place] [address] Care Team Providers Care Conservation Assistant Name Role Phone ANALY WYNN Primary Care Provider FADIAJOANNANALY Wolf Primary Care Provider Assessment Encounter Date Assessment Date Assessment LastModified by Organization Details LastModified Time 04/28/2023 04/28/2023 This note is dictated and transcribed by [employer]. [employer] variances may occur. Despite proofreading, typographical errors may occur. [email or web address] Not available 04/28/2023 10:59:24 05/23/2023 05/23/2023 This note is dictated and transcribed by [employer]. [employer] variances may occur. Despite proofreading, typographical errors may occur. [email or web address] Not available 05/25/2023 09:40:43 06/20/2023 06/20/2023 This note is dictated and transcribed by [employer]. [employer] variances may occur. Despite proofreading, typographical errors may occur. Not available 06/21/2023 09:22:50 07/04/2023 07/04/2023 This note is dictated and transcribed by [employer]. [employer] variances may occur. Despite proofreading, typographical errors may occur. Not available 07/05/2023 09:39:36 Plan of Treatment Reminders Order Date Submit Date Provider Last Modified By Organization Details Last Modified Time Details Appointments None recorded. Lab None recorded. Referral None recorded. Procedures None recorded. Surgeries None recorded. Imaging XR, foot, 3 or more view 2022 023 [email or web address] [facility] [place], [facility], [place], [address], 3 09:44:00 XR, foot, 3 or more view [address] [facility] [place], [address], [address], 3 09:41:32 XR, foot, 3 or more view [address] [facility] [place], [address], [place], [address], 3 11:16:21 CT, foot, w/o contrast - navicular fracture- nonunion malunion 2022 023 [facility] (Imaging), [address] [facility] [address], [place], [address], 3 16:07:40 Medication Orders None recorded. Patient TargetsNo targets recorded. Patient InstructionsNo instructions recorded. Reason for Referral None Reported. Results Created Date Observation Date Name Description Value Unit Range Abnormal Flag Note LastModifiedBy Organization Detail LastModifiedTime 03/28/20 23 XR, foot, 3 or more view No observ ation record ed. [email or web address] [facility] [place] [address] [facility] [address], [place], [address], 03/28/2023 09:56:20 04/28/20 23 XR, foot, 3 or more view No observ ation record ed. [email or web address] [facility] [place] [address] [facility] [address], [place], [address], 04/28/2023 11:15:17 05/10/20 23 05/09/2023 CT, foot, w/o contr ast No observ ation record ed. [email or web address] [facility] [address], [place], [address], 05/18/2023 11:14:20 07/05/20 XR, foot, 3 or more view No observ ation record ed. [email or web address] [facility] [place] [address], [place], [address], 07/05/2023 09:41:30 08/09/20 XR, foot, 3 or more view No observ ation record ed. [email or web address] [facility] [place] [address], [place], [address], 08/09/2023 09:43:59 Result Notes None recorded. Problems Name Problem SNOMED Code Status Onset Date Resolution Date Notes Provider Name and Address Organization Details Recorded Time Fracture of foot 92049423 Active Italia dorsey LPN null, [employer] 3 11:51:03 Pain in right foot 0992420380111 07 Active 2022 Mal Khan DPM [address], [place], [address], [employer] 3 15:00:09 Closed fracture of navicular bone of foot 24995555 Active 2022 Mal Khan DPM [address], [place], [address], [employer] 3 15:00:16 Postoperati ve visit 487029989 Active 2022 Mal Khan DPM [address], [place], [address], [employer] 3 09:23:39 Problem Notes None recorded. Procedures Surgical History Date Name Laterality Status Provider Name and Address Organization Details Recorded Time 07/04/20 Suture Removal completed Mal Khan DPM [address], [place], [address], [employer] 07/05/2023 09:38:08 Cholecystectomy completed Italia Cristobal LPN [facility] [employer] [employer] [facility] 02/14/2023 11:49:35 Hysterectomy completed Italia Cristobal LPN [facility] [employer] [facility] 02/14/2023 11:49:40 Imaging Results None recorded. Procedure Notes None recorded. Medical Equipment None Reported. Allergies Allergen ID Allergen Name Allergen Category Reaction Reaction Severity Criticality Documentation Date Start Date Code Code System Note Provider Name and Address Organization Details Recorded Time 97335 erythromy arnav medicatio n Not available Not available Not available 02/14/2023 4053 RxNorm RON Cronin, [facility] [employer] [facility] 11:50:24 37478 Local anestheti c (substanc e) medicatio n Not available Not available Not available 02/14/2023 34442 7003 SNOMED Italia dorsey LPN pili, [facility] [employer] [facility] 11:50:46 Medications Name Sig Start Date Stop [...] Updated DateTime 3 170.18 cm 33.7 kg/m2 76043.3 6 g 83 /min 14 /min 99 % 99 % 118 mm[Hg] 87 mm[Hg] Bhavana Manan [employer] [facility] 3 10:59:33 Date Recorded Body height Body mass index (BMI) Body weight Heart rate Respiratory rate Oxygen saturation Oxygen saturation in Arterial blood by Pulse oximetry Systolic blood pressure Diastolic blood pressure Provider Name and Address Organization Details Last Updated DateTime 3 170.18 cm 33.7 kg/m2 91480.3 6 g 81 /min 14 /min 99 % 99 % 139 mm[Hg] 88 mm[Hg] Bhavana Hinkle [employer] [facility] [employer] [facility] 3 17:08:14 Date Recorded Body height Body mass index (BMI) Body weight Heart rate Respiratory rate Oxygen saturation Oxygen saturation in Arterial blood by Pulse oximetry Systolic blood pressure Diastolic blood pressure Provider Name and Address Organization Details Last Updated DateTime 3 170.18 cm 33.7 kg/m2 38270.3 6 g 103 /min 14 /min 99 % 99 % 143 mm[Hg] 76 mm[Hg] Bhavana Hinkle [employer]agne [place] [employer] [facility] 3 17:38:47 Date Recorded Body height Body mass index (BMI) Body weight Heart rate Respiratory rate Oxygen saturation Oxygen saturation in Arterial blood by Pulse oximetry Systolic blood pressure Diastolic blood pressure Provider Name and Address Organization Details Last Updated DateTime 3 170.18 cm 33.7 kg/m2 65366.3 6 g 95 /min 14 /min 98 % 98 % 134 mm[Hg] 85 mm[Hg] Bhavana Manan [employer] [place] [employer] [facility] 3 17:19:21 Date Recorded Body height Body mass index (BMI) Body weight Heart rate Respiratory rate Body temperature Oxygen saturation Oxygen saturation in Arterial blood by Pulse oximetry Systolic blood pressure Diastolic blood pressure Provider Name and Address Organization Details Last Updated DateTime 3 170.18 cm 33.7 kg/m2 12817.3 6 g 95 /min 14 /min 98 [degF] 98 % 98 % 130 mm[Hg] 85 mm[Hg] Jessi Miranda [facility] [employer] [employer] [facility] 17:40:23 Social History Question Answer Notes LastModified by Organizat ion Details LastModified Time Tobacco Smoking Status Never Smoker Italia Cristobal LPN null, [facility] [employer] [facility] 02/14/2023 11:52:42 Has Tobacco Cessation Counseling Been Provided? No [email or web address] Information not available 02/14/2023 Sex: Unknown Functional Status Question Answer Note LastModified by Organizat ion Details LastModified Time Do you or have you ever used any other forms of tobacco or nicotine? No [email or web address] Information not available 02/14/2023 What is your level of alcohol consumption? Occasional [email or web address] Information not available 02/14/2023 Mental Status None recorded. Family History Relationship Description Onset Age of this Age Resolved Age Notes LastModified by Organization Details LastModified Time Father Diabetes mellitus [email or web address] Not available 11:51:11 Unspecified Relation Cerebrovascu lar accident grandp denists [email or web address] Not available 02/14/2023 11:51:27 Unspecified Relation Arthritis grandp arents [email or web address] Not available 02/14/2023 11:51:37 Unspecified Relation Hypertensive disorder p arents [email or web address] Not available 02/14/2023 11:51:51 Unspecified Relation Heart disease p denists [email or web address] Not available 02/14/2023 11:52:07 Unspecified Relation Malignant neoplastic disease grandp arents [email or web address] Not available 02/14/2023 11:52:24 Mother Malignant neoplastic disease [email or web address] Not available 11:52:24 Medical History No medical history recorded. Gynecological HistoryNo gynecological history recorded. Obstetrics History GPAL:G 0 P 0 0 0 0 Past Encounters Encounter ID Performer Location Encounter Start Date Encounter Closed Date Diagnosis/Indication Diagnosis SNOMED-CT Code Diagnosis ICD10 Code Diagnosis Note [id number] Mal Khan DPM [facility] [place] [address] [place] [address] 02/14/2023 11:10:34 02/14/2023 16:43:28 Closed fracture of navicular bone of foot 96026206 S92.251A mild avulsion fracture mildly displaced to the dorsal aspect of the central navicularX -rays reviewed todayConti nue crutches and a cam boot nonweightb earing for 2 weeksfollo w-up in 2 weeks for repeat x-rays Pain in right foot 66583 76852 64703 M79.671 as above [id number] Mal Khan DPM [facility] [place] [address] [place] [address] 02/28/2023 14:33:15 02/28/2023 16:12:05 Closed fracture of navicular bone of foot 46410346 S92.251A mild avulsion fracture mildly displaced to the dorsal aspect of the central navicularX -rays reviewed today -- No significan t signs of healingCon tinue cam boot 3 weeksfollo w-up in 3 weeks follow-up x-rays [id number] Mal Khan DPM [facility] [place] [address] [place] [address] 03/28/2023 09:12:44 03/28/2023 09:58:40 Closed fracture of navicular bone of foot 50290675 S92.251A mild avulsion fracture mildly displaced to the dorsal aspect of the central navicularX -rays reviewed today -- No significan t signs of healing Or changes in alignmentC ontinue cam boot 3-4weeksre viewed treatment options if the patient does not resolve her pain by next visit we will plan to surgically excise the piece of bonefollow -up in 3-4 weeks follow-up x-rays [id number] Mal Khan DPM [facility] [place] [address] [place] [address] 04/28/2023 10:52:46 04/28/2023 11:31:58 Closed fracture of navicular bone of foot 00720030 S92.251P mild avulsion intra-apolinar cular fracture mildly displaced to the dorsal aspect of the central navicularn o significan t signs of healingCon tinue cam bootRice therapyObt ain CT for surgical planningfo llow-up post CT to review and discuss treatment options surgically Pain in right foot 18237 38239 06662 M79.671 as above [id number] Mal Khan DPM [facility] [place] [address] [place] [address] 05/23/2023 16:59:50 05/25/2023 11:49:13 Closed fracture of navicular bone of foot 10692461 S92.251K mild avulsion intra-apolinar cular fracture mildly displaced 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 [id number] Mal Khan DPM [facility] Pod[facility] [place] [address] [place] [address] 06/20/2023 17:32:00 06/21/2023 10:57:21 Closed fracture of navicular bone of foot 45444699 S92.251K surgery date June 17, 2023status post 3 daysdressi ngs changed and cleaned with ChloraPrep keep dressings clean dry and intact for 2 weeksconti nue minimal weight-gilberto ring to the heel onlyfollow -up in 2 weeks for suture removal, repeat x-rays in 2 weeks Postoperative visit 1836 91440 Z09 as above [id number] Mal Khan DPM [facility] Pod[facility] [place] [address] [place] [address] 07/04/2023 17:11:17 07/05/2023 12:05:48 Closed fracture of navicular bone of foot 54098278 S92.251K surgery date June 17, 2023status post 2 weekssutur es removedSte ri-Strips appliedpat ient may shower no soakingfol low-up in 4 weeks for repeat x-rays Postoperative visit 1836 44757 Z09 status post 2 weeks open reduction internal fixation navicular, rightconti nue weight-gilberto ring to the heel only [id number] Mal Khan DPM [facility] [place] [address] [place] [address] 08/01/2023 17:04:41 08/09/2023 15:26:43 Postoperative visit 121254368 Z09 open reduction internal fixation navicular, rightnorma l shoe gear transition if has pain with normal shoe gear continue cam boot for 2-3 weeks Closed fra cture of navicular bone of foot 16305510 S92.251K surgery date June 17, 2023repeat x-rays reviewed with the patientFol low-up as needed Health Concerns Section Related Observation LastModified by Organization Detai ls LastModified Time None Recorded Concern Status LastModified by Organization Details LastModified Time None Recorded Advance Directives Directive None Recorded Payers Insurance Date Sequence Insurance Name Policy Number Policy Lin Covered Member ID Lin Member ID Guarantor Name 08/09/2023 1 [facility] [id number] Antonette Campbell [id number] Antonette Campbell 05/23/2023 1 [facility] (O) [id number] Antonette Campbell [id number] Antonette Campbell Notes Date Note Type Note Provider Name [...] foot for surgical planning. Mal Khan DPM [address] [place] [address], [facility] [address], [place], [address], [employer] [facility] [employer] [facility] 04/28/2023 11:17:35 05/23/2023 text/html . Patient is [...] Khan DPM [address], [place], [address], [employer] [facility] [employer] [facility] 05/25/2023 09:42:35 06/20/2023 text/html s/p navicular fracture [...] Khan DPM [address], [place], [address], [employer] [facility] [employer] 06/21/2023 09:24:00 07/04/2023 text/html . Patient is [...] Khan DPM [address], [place], [address], [employer] [facility] [employer] [facility] 07/05/2023 09:42:09 08/01/2023 text/html . Patient is a 42-year-old female who returns the office for follow-up on closed fracture of the navicular bone. Patient had repeat x-rays which shows healed fracture with intact hardware without failure. Patient states her pain is resolved. Patient denies any other pedal complaints. Mal Khan DPM [address], [place], [address], [employer] 08/09/2023 09:44:04 OBGyn Episode No OBEpisode recorded.
--- OUTSIDE RECORDS SUMMARY | 2025-05-02 09:52 | XMS_ITS | Continuity of Care Document ---
Author Organization [facility] Address [address] [place] [address] Phone Care Team Providers Care Collar Tacker Name Role Phone Curt OD OD, Villa Unavailable Unavailable Allergies, Adverse Reactions, Alerts Substance Reaction Status Criticality erythromycin base dizzy and nausea(severe) Active No Information Medications Medication Instructions Dosage Effective Dates (start - stop) Status Comments Synthroid 75 mcg tablet take 1 tablet by oral route every day 75 MCG - Active estradiol 1 mg tablet take 1 tablet by oral route every day 1 MG - Active Artificial Tears (unknown strength) Not Available - Active MULTIVITAMINS (unknown strength) Not Available - Active Synthroid 50 mcg tablet take 1 tablet by oral route every day 50 MCG - No Longer Active Other control - No Longe r Active Procedures Procedure Date REFRACTION EYE EXAM & TREATMENT REFRACTION EYE EXAM & TREATMENT OFFICE/OUTPATIENT VISIT, EST GONIOSCOPY OFFICE/OUTPATIENT VISIT, EST Iridotomy/Iridectomy By Laser Surgery Ju Iridotomy/Iridectomy By Laser Surgery Ju GONIOSCOPY EYE EXAM & TREATMENT GONIOSCOPY OFFICE/OUTPATIENT VISIT, EST REFRACTION EYE EXAM & TREATMENT GONIOSCOPY EYE EXAM, NEW PATIENT OFFICE/OUTPATIENT VISIT, EST REFRACTION EYE EXAM & TREATMENT Glasses Rx Given REFRACTION EYE EXAM & TREATMENT Glasses Rx Given REFRACTION EYE EXAM & TREATMENT Glasses Rx Given REFRACTION EYE EXAM, NEW PATIENT Glasses Rx Given Advance Directives Directive Yes / No Effective Date File Name No Information Encounters Encounter Description Practice Location Reason(s) For Visit Diagnoses Date Provider Providers Copied on Encounter [facility] [place], [id number] tel:[phone] KEENA Estrada myopia right eye and left eye 1 year(s) (chief complaint) Myopia, bilateral Sep-11 26- 1 Curt Snow [facility], [place], [id number]. tel:[phone] Referring Provider: Villa Griggs, [place], [address]. tel:[phone] [facility], [place], [id number] tel:[phone] KEENA Estrada myopia right eye and left eye 1 year(s) (chief complaint) Myopia, bilateral Sep-1 0 Curt Snow [facility], [place], [id number]. tel:[phone] Referring Provider: Delroy Tiwari MD S, [place], [address]. tel:[phone] OFFICE/OUTPA TIENT VISIT, EST [facility], [place], [id number] tel:[phone] KEENA Estrada f/u IOP s/p YAG PI right eye and left eye 6 week(s) (chief complaint) Anatomical narrow angle, bilateral Sep-0 2-202 0 Karie Potts. [facility], [facility] [place], [id number]. tel:[phone] Referring Provider: Delroy Tiwari MD S, [facility] [place], [address]. tel:[phone] OFFICE/OUTPA TIENT VISIT, EST [facility], [facility] [place], [id number] tel:[phone] [facility] Narrow angles right eye and left eye 1 year(s) (chief complaint) Anatomical narrow angle, bilateral 0 Isgrig OD Lisandro. [facility], [facility] [place], [id number]. tel:[phone] Referring Provider: Delroy Tiwari MD S, [facility] [address] [place], [place] [address] [place], [address]. tel:[phone] [facility], [facility] [place], [id number] tel:[phone] [facility] SKY right eye and left eye (chief complaint) comments only (chief complaint) comments only (chief complaint) Anatomical narrow angle, right eye 0 Karie Potts. [facility] [place], [id number]. tel:[phone] Referring Provider: Delroy Tiwari MD S, [facility] [place], [address]. tel:[phone] [facility], [facility] [place], [id number] tel:[phone] [facility] YAG PI procedure right eye (chief complaint) Anatomical narrow angle, right eye 0 Karie Potts. [facility], [facility] [place], [id number]. tel:[phone] Referring Provider: Delroy Tiwari MD S, [facility] [place], [address]. tel:[phone] [facility], [facility] [place], [id number] tel:[phone] KEENA [place] narrow angles right eye and left eye several months (chief complaint) Anatomical narrow angle, right eyeAnatomical narrow angle, left eyeSenile incipient cataract of both eyesDry eye syndrome of bilateral lacrimal glands Zenon- 0 Karie Potts. [facility], [facility] [place], [id number]. tel:[phone] Referring Provider: Delroy Tiwari MD S, [facility] [place], [address]. tel:[phone] OFFICE/OUTPA TIENT VISIT, EST [facility], [facility] [place], [id number] tel:[phone] KEENA [place] SKY right eye and left eye 1 year(s) (chief complaint) comments only (chief complaint) Anatomical narrow angle, bilateralDry eye syndrome of bilateral lacrimal glandsSenile incipient cataract of both eyes Aug- 0 9 Karie Potts. [facility] [place], [id number]. tel:[phone] Referring Provider: Delroy Tiwari MD S, [facility] [place], [address]. tel:[phone] [facility], [facility] [place], [id number] tel:[phone] KEENA [place] myopia right eye and left eye 1 year(s) (chief complaint) Myopia, bilateral 2-201 9 Curt Driver. [facility] [place], [id number]. tel:[phone] Referring Provider: Villa Kluver OD R, [facility] [address] [place], [address]. tel:[phone] [facility], [place], [id number] tel:[phone] KEENA [place] Anatomical narrow angle, right eyeAnatomical narrow angle, left eyeMyopia, bilateral Oct-0 3-201 8 Karie Potts. [facility], [place], [id number]. tel:[phone] Referring Provider: Delroy Tiwari MD S, [facility] [place], [address]. tel:[phone] OFFICE/OUTPA TIENT VISIT, EST [facility], [place], [id number] tel:[phone] KEENA [place] Anatomical narrow angle, bilateralDry eye syndrome of bilateral lacrimal glands Aug-3 1-201 8 Kluver OD Villa. [facility], [place], [id number]. tel:[phone] [facility], [place], [id number] tel:[phone] [facility] Myopia, bilateralAnato mical narrow angle, bilateral Aug-0 7-201 8 Etame OD Anwi. [facility], [place], [address]. tel:[phone] Referring Provider: Anwi Etame OD, [place], [address]. tel:[phone] [facility], [place], [id number] tel:[phone] [facility] Myopia, bilateral Aug-0 2-201 7 Etame OD Anwi. [facility], [place], [address]. tel: [facility], [place], [id number] [phone] [facility] Hypermetropia, bilateral 6 Etame OD Anwi. [facility] [place], [address]. tel:[phone] [facility] [place], [id number] tel:[phone] [facility] Astigmatism, unspecifiedHyp ermetropia 5 Etame OD Anwi. [facility], [facility] [place], [address]. tel:[phone] Family History Family Member Type Diagnosis Age At Onset Maternal grandmother Problem (finding) degenerative di sorder of macula Mother Problem malignant neopla sm of breast in first degree relative Father Problem (finding) cataract Father Problem (finding) Diabetes mellitus Maternal grandfather Problem (finding) Cancer, unknown Payers Payer name Insurance type Covered democrat ID Authoriza tion(s) [facility] [id number] Social History Type Description Quantity Date Captured Comments Alcohol Use Details Caffeine Use Details Unknown Tobacco Use Status Current non-smoker Smoking Status Never smoker Non-Smoking Tobacco Use Details : No Details Available : No Details Available Sex Female Chief Complaint And Reason For Visit From encounter dated '08/06/2021 13:30'. myopia right eye and left eye 1 year(s) (chief complaint) Reason For Referral Reason For Referral No Information History Of Present Illness Encounter Date Complaint History Of Prese nt Illness myopia The 40 year old presents for evaluation of myopia in the right eye and left eye. It started about 1 year(s) ago. The symptom is constant. The condition is stable. myopia The 39 year old presents for evaluation of myopia in the right eye and left eye. It started about 1 year(s) ago. The symptom is constant. The condition is stable. 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 f/u IOP s/p YAG PI The 39 year o ld presents for evaluation of f/u IOP s/p YAG PI in the right eye and left eye. It started about 6 week(s) ago. The symptom is constant. It occurs always. The condition is stable. Narrow angles The 39 year old presents for evaluation of Narrow angles in the right eye and left eye. It started about 1 year(s) ago. The symptom is constant. The condition is stable. S/P LPI OU SKY The 39 year old presents for evaluation of SKY in the right eye and left eye. pt presents for Yag PI OS due to narrow angle. comments only Yag PI OD 0 comments only PT WANTS TO KNOW WHEN IS OK TO TAKE OTC MEDS THAT HAVE A GLAUCOMA WARNING. YAG PI procedure The 39 year old presents for evaluation of YAG PI procedure in the right eye. Ibuprofen this AM narrow angles The 39 year old presents for evaluation of narrow angles in the right eye and left eye. It started several months ago. The symptom is constant. The condition is worsening. Gonio ordered today SKY The 38 year old presents for evaluation of SKY in the right eye and left eye. It started about 1 year(s) ago. The symptom is constant. The condition is stable. VA is goodNo F &F No eye painNo RICO or nauseaEye Meds Art Trs prn comments only myopia myopia The 38 year old presents for evaluation of myopia in the right eye and left eye. It started about 1 year(s) ago. The symptom is constant. The condition is stable. AT used prn for dryness. Functional Status Date Functional Assessmen t No Information Instructions Date Instruction Additional Infor mation Return in 1 year Villa Tomlin OD for Complete. Related to Myopia, bilateral Impression/Plan Related to Myopi a, bilateral Return in 1 year Villa Tomlin OD for Complete. Related to Myopia, bilateral Impression/Plan Related to Myopi a, bilateral Return in as scheduled Related t o Anatomical narrow angle, bilateral Impression/Plan Related to Anato mical narrow angle, bilateral Return in as scheduled Related t o Anatomical narrow angle, bilateral Impression/Plan Related to Anato mical narrow angle, bilateral Return in as scheduled for yag p i Related to Anatomical narrow angle, right eye Impression/Plan Related to Anato mical narrow angle, right eye Impression/Plan Related to Anato mical narrow angle, left eye Impression/Plan Related to Senil e incipient cataract of both eyes Impression/Plan Related to Dry e ye syndrome of bilateral lacrimal glands Return in 6 months w Delroy Calhoun MD for Gonioscopy and IOP. Related to Anatomical narrow angle, bilateral Impression/Plan Related to Senil e incipient cataract of both eyes Impression/Plan Related to Dry e ye syndrome of bilateral lacrimal glands Impression/Plan Related to Anato mical narrow angle, bilateral Return in 1 year Villa Tomlin OD for Complete. Related to Myopia, bilateral Impression/Plan Related to Myopi a, bilateral Anatomical narrow an gle borderline glaucoma of left eye OS Condition: new prob, no addtl w/u needed. 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 - Discussed with pt that as people age, the front chamber of the eye can narrow and block drainage pathway of fluid to leave the eye, and this can lead to a back up of fluid which can then lead to a painful, red and blurry eye. The pressure and pain can become so severe that nausea and vomiting can occur. This is called an acute angle closure glaucoma attack. This can be prevented with laser treatment. Gonio ordered to visualize anatomy of the angle, reviewed results with patient. angle narrow but not occludable at this time we may need to consider a yag pi at some point in time symptoms of ACG disc with pt and warned pt to call us if any problems , Related to Anatomical narrow angle borderline glaucoma of right eye Follow up - Return i n 1 year with Delroy Tiwari MD for Complete. Related to Anatomical narrow angle borderline glaucoma of right eye Bilateral dry eyes - see above discussion Related to Bilateral dry eyes Anatomical narrow an gle, bilateral OU Condition: established, stable. - reassured pt her angles don't look that high riskin my opinion don't think warrants PI but with gonio NW has final saynot causing pressure or symptomslikley sinuses and/or dryness, gave samples of Systane Balance to use prn Related to Anatomical narrow angle, bilateral - Return in as scheduled Related to Anatomical narrow angle, bilateral Myopia, bilateral OU Condition: established, stable. - Discussed findings. New glasses Rx given. Stable exam findings. Call with any changes in vision. Related to Myopia, bilateral Narrow angle glaucom a suspect of both eyes OU Condition: new problem addtl w/u needed. - Discussed with patient angle that drains fluid in eye is narrow. Has potential to close off and cause an acute glaucoma attack, which can cause irreversible damage in the eye or even blindness. Minor procedure can be done with a laser to help prevent such attack. Rec consult with [facility] Specialist. Possible (PI) peripheral iridotomy. Related to Narrow angle glaucoma suspect of both eyes Follow up - Return i n Next available weeks with Delroy Tiwari MD for Glaucoma Consult. Related to Narrow angle glaucoma suspect of both eyes Follow up - Return i n 1-2 years with Etame, Anwi OD for Complete. Related to Myopia, bilateral Myopia, bilateral OU Condition: new prob, no addtl w/u needed. - Discussed findings. New glasses Rx given. Stable exam findings. Call with any changes in vision. Related to Myopia, bilateral Follow up - Return i n 1-2 years with Etame, Anwi OD for Complete. Related to Hypermetropia, bilateral Hypermetropia, bilat eral OU Condition: established, stable. - Discussed findings. New glasses Rx given. Stable exam findings. Call with any changes in vision. Related to Hypermetropia, bilateral Follow up - Return i n 1 year with Etame, Anwi OD for Complete. Related to Hyperopia Hyperopia OU Conditi on: new prob, no addtl w/u needed. - Educational materials provided: Discussed findings. New glasses Rx given. Stable exam findings. Call with any changes in vision. Related to Hyperopia Astigmatism, unspeci fied OU Condition: new prob, no addtl w/u needed. - see plan 1 Related to Astigmatism, unspecified Assessments Type Assessment Date assessment Myopia, bilateral impression Myopia, bilateral: Patient Care Teams Name Effective Dates (start - stop) Status Members No Information
[2025-05-02 19:39] LABS: Hemoglobin 15.6 g/dL (12.0-15.0); Mean Corpuscular HGB Conc 32.5 g/dl (32-36); Mean Corpuscular Hemoglobin 30.6 pg (26-34); Mean Corpuscular Volume 94.3 fl (80-100); Mean Platelet Volume 10.5 fl (7.4-10.4); Platelet Count Result 261 k/mm3 (150-375); Red Blood Count 5.09 M/mm3 (4.2-5.4); Red Cell Distribution Width 13.5 % (11.5-14.5); White Blood Count 7.2 K/mm3 (4.5-10.0)
[2025-05-02 21:12] LABS: Alanine Aminotransferase 33 U/L (6-35); Albumin Level 4.3 g/dL (3.5-5.1); Alkaline Phosphatase 115 U/L (38-126); Anion Gap 9 mmol/L (4-12); Aspartate Amino Transferase 70 U/L (14-36); Bilirubin,Total 0.6 mg/dL (0.2-1.3); Blood Urea Nitrogen 14 mg/dL (7-17); Calcium 9.3 mg/dL (8.4-10.2); Carbon Dioxide 25 mmol/L (22-30); Chloride 102 mmol/L (98-107); Cholesterol 198 mg/dL (0-200); Estimated Glomerular Filt Rate > 60; Glucose 124 mg/dL (65-110); HDL Direct 43 mg/dL; Potassium 4.1 mmol/L (3.4-5.0); Sodium 136 mmol/L (137-145); Total Protein 7.5 g/dL (6.3-8.2); Triglycerides 162 mg/dL (<150)
[2025-05-02 21:22] LABS: LDL Cholesterol Direct 107 mg/dL
[2025-05-02 21:45] LABS: Hemoglobin A1C 6.4 % (<5.7)
[2025-05-06 13:39] LABS: Vitamin D 1,25 (OH)2 Total 57 pg/mL (18-72); Vitamin D2 1,25 (OH)2 <8 pg/mL; Vitamin D3 1,25 (OH)2 57 pg/mL
== END 2025-05-02 09:18 | disposition home or self-care (01) ==
LOC: ANHGOSHLAB 09:18
PROVIDERS: PCP Family Medicine; Visit Provider Family Medicine
DX: E78.5 Hyperlipidemia, unspecified (principal); R73.03 Prediabetes; E03.9 Hypothyroidism, unspecified; E55.9 Vitamin D deficiency, unspecified; R74.8 Abnormal levels of other serum enzymes; D64.9 Anemia, unspecified; Z79.899 Other long term (current) drug therapy
CPT/HCPCS: 36415; 80053; 80061; 82652; 83036; 84443; 85027

== ENCOUNTER 2025-09-26 08:50 | Outpatient (CLI) | payer OTHER, SELFPAY ==
[2025-09-26 10:24] LABS: Hematocrit 44.9 % (37.0-47.0); Hemoglobin 14.9 g/dL (12.0-15.0); Mean Corpuscular HGB Conc 33.2 g/dl (32-36); Mean Corpuscular Hemoglobin 30.5 pg (26-34); Mean Corpuscular Volume 91.8 fl (80-100); Platelet Count Result 253 k/mm3 (150-375); Red Blood Count 4.89 M/mm3 (4.2-5.4); White Blood Count 5.7 K/mm3 (4.5-10.0)
[2025-09-26 10:46] LABS: Alanine Aminotransferase 24 U/L (6-35); Albumin Level 4.3 g/dL (3.5-5.1); Alkaline Phosphatase 89 U/L (38-126); Anion Gap 9 mmol/L (4-12); Aspartate Amino Transferase 43 U/L (14-36); Bilirubin,Total 0.8 mg/dL (0.2-1.3); Blood Urea Nitrogen 11 mg/dL (7-17); Calcium 8.9 mg/dL (8.4-10.2); Carbon Dioxide 23 mmol/L (22-30); Chloride 106 mmol/L (98-107); Cholesterol 173 mg/dL (0-200); Estimated Glomerular Filt Rate > 60; Glucose 99 mg/dL (65-110); HDL Direct 38 mg/dL; Potassium 4.0 mmol/L (3.4-5.0); Sodium 138 mmol/L (137-145); Total Protein 7.6 g/dL (6.3-8.2); Triglycerides 134 mg/dL (<150)
[2025-09-26 11:03] LABS: Free T4 Free Thyroxine 1.13 ng/dL (0.78-2.19)
[2025-09-26 11:05] LABS: Hemoglobin A1C 5.5 % (<5.7)
[2025-09-26 11:21] LABS: Thyroid Stimulating Hormone 1.350 uIU/mL (0.465-4.680)
--- OUTSIDE RECORDS SUMMARY | 2025-09-26 17:37 | XMS_ITS | Data Portability ---
Author Organization [facility], Main Office Address [address] [place] [address] Care Team Providers Care Hydropulper Name Role Phone ANALY WYNN Primary Care Provider ANALY WYNN Primary Care Provider Assessment Encounter Date Assessment Date Assessment LastModified by Organization Details LastModified Time 04/28/2023 04/28/2023 This note is dictated and transcribed by [employer]. Lens Blank Gauger variances may occur. Despite proofreading, typographical errors may occur. Not available 04/28/2023 10:59:24 05/23/2023 05/23/2023 This note is dictated and transcribed by [employer]. Lens Blank Gauger variances may occur. Despite proofreading, typographical errors may occur. Not available 05/25/2023 09:40:43 06/20/2023 06/20/2023 This note is dictated and transcribed by [employer]. Lens Blank Gauger variances may occur. Despite proofreading, typographical errors may occur. Not available 06/21/2023 09:22:50 07/04/2023 07/04/2023 This note is dictated and transcribed by [employer]. Lens Blank Gauger variances may occur. Despite proofreading, typographical errors may occur. Not available 07/05/2023 09:39:36 Plan of Treatment Reminders Order Date Submit Date Provider Last Modified By Organization Details Last Modified Time Details Appointments None recorded. Lab None recorded. Referral None recorded. Procedures None recorded. Surgeries None recorded. Imaging XR, foot, 3 or more view 2022 023 [email or web address] 7 [facility] [place], [facility], [place], [address], 3 09:44:00 XR, foot, 3 or more view [email or web address] [facility] [place], [address], [place], [address], 3 09:41:32 XR, foot, 3 or more view [email or web address] [facility] [place], [address], [address], 3 11:16:21 CT, foot, w/o contrast - navicular fracture- nonunion malunion 2022 023 [facility] ([facility] [address], [place], [address], 3 16:07:40 Medication Orders None recorded. Patient TargetsNo targets recorded. Patient InstructionsNo instructions recorded. Reason for Referral None Reported. Results Created Date Observation Date Name Description Value Unit Range Abnormal Flag Note LastModifiedBy Organization Detail LastModifiedTime 03/28/20 23 XR, foot, 3 or more view No observ ation record ed. [email or web address] [place] [address] Podiat[place] [address] [facility] [address], [place], [address], 03/28/2023 09:56:20 04/28/20 23 XR, foot, 3 or more view No observ ation record ed. [email or web address] [place] [address] [facility] [address] [facility] [address], [address], 04/28/2023 11:15:17 05/10/20 23 05/09/2023 CT, foot, w/o contr ast No observ ation record ed. [email or web address], [place], [address], 05/18/2023 11:14:20 07/05/20 XR, foot, 3 or more view No observ ation record ed. [email or web address] [facility] [place] [address], [place], [address], 07/05/2023 09:41:30 08/09/20 XR, foot, 3 or more view No observ ation record ed. [email or web address] [facility] [place] [address], [place], [address], 08/09/2023 09:43:59 Result Notes None recorded. Problems Name Problem SNOMED Code Status Onset Date Resolution Date Notes Provider Name and Address Organization Details Recorded Time Fracture of foot 88688883 Active Italia dorsey LPN null, [employer] 3 11:51:03 Pain in right foot 0205960686467 07 Active 2022 Mal Khan DPM [address], [place], [address], [employer] 3 15:00:09 Closed fracture of navicular bone of foot 40180166 Active 2022 Mal Khan DPM [address], [place], [address], [employer] 3 15:00:16 Postoperati ve visit 051447014 Active 2022 Mal Khan DPM [address], [place], [address], [employer] 3 09:23:39 Problem Notes None recorded. Procedures Surgical History Date Name Laterality Status Provider Name and Address Organization Details Recorded Time 07/04/20 Suture Removal completed Mal Khan DPM [address], [place], [address], [employer] 07/05/2023 09:38:08 Cholecystectomy completed Italia Cristobal LPN [facility] 02/14/2023 11:49:35 Hysterectomy completed Italia Cristobal LPN [facility] 02/14/2023 11:49:40 Imaging Results None recorded. Procedure Notes None recorded. Medical Equipment None Reported. Allergies Allergen ID Allergen Name Allergen Category Reaction Reaction Severity Criticality Documentation Date Start Date Code Code System Note Provider Name and Address Organization Details Recorded Time 64903 erythromy arnav medicatio n Not available Not available Not available 02/14/2023 4053 RxNorm RON Cronin [facility] 11:50:24 31227 Local anestheti c (substanc e) medicatio n Not available Not available Not available 02/14/2023 36112 7003 [facility]ED [facility] 11:50:46 Medications Name Sig Start Date Stop [...] in Arterial blood by Pulse oximetry Systolic And Diastolic Provider Name and Address Organization Details Last Updated DateTime 3 170.18 cm 33.7 kg/m2 45967.3 6 g 83 /min 14 /min 99 % 99 % 118/87 mm[Hg] Bhavana Gogiro 3 10:59:33 Date Recorded Body height Body mass index (BMI) Body weight Heart rate Respiratory rate Oxygen saturation Oxygen saturation in Arterial blood by Pulse oximetry Systolic And Diastolic Provider Name and Address Organization Details Last Updated DateTime 3 170.18 cm 33.7 kg/m2 59687.3 6 g 81 /min 14 /min 99 % 99 % 139/88 mm[Hg] Bhavana Gogiro 3 17:08:14 Date Recorded Body height Body mass index (BMI) Body weight Heart rate Respiratory rate Oxygen saturation Oxygen saturation in Arterial blood by Pulse oximetry Systolic And Diastolic Provider Name and Address Organization Details Last Updated DateTime 3 170.18 cm 33.7 kg/m2 44928.3 6 g 103 /min 14 /min 99 % 99 % 143/76 mm[Hg] Bhavana Gogiro 3 17:38:47 Date Recorded Body height Body mass index (BMI) Body weight Heart rate Respiratory rate Oxygen saturation Oxygen saturation in Arterial blood by Pulse oximetry Systolic And Diastolic Provider Name and Address Organization Details Last Updated DateTime 3 170.18 cm 33.7 kg/m2 45602.3 6 g 95 /min 14 /min 98 % 98 % 134/85 mm[Hg] Bhavana Gogiro 3 17:19:21 Date Recorded Body height Body mass index (BMI) Body weight Heart rate Respiratory rate Body temperature Oxygen saturation Oxygen saturation in Arterial blood by Pulse oximetry Systolic And Diastolic Provider Name and Address Organization Details Last Updated DateTime 3 170.18 cm 33.7 kg/m2 18087.3 6 g 95 /min 14 /min 98 [degF] 98 % 98 % 130/85 mm[Hg] Jessi Miranda [facility] 17:40:23 Social History Question Answer Notes LastModified by Organ[employer]at [employer] Details LastModified Time Tobacco Smoking Status Never Smoker Italia Cristobal LPN null, [place] - [employer] [facility] 02/14/2023 11:52:42 Has Tobacco Cessation Counseling Been Provided? No [email or web address] Information not available 02/14/2023 Sex: Unknown Functional Status Question Answer Note LastModified by [employer] Details LastModified Time Do you or have you ever used any other forms of tobacco or nicotine? No [email or web address] Information not available 02/14/2023 What is your level of alcohol consumption? Occasional [email or web address] Information not available 02/14/2023 Mental Status None recorded. Family History Relationship Description Onset Age of this Age Resolved Age Notes LastModified by Organization Details LastModified Time Father Diabetes mellitus [email or web address] Not available 11:51:11 Unspecified Relation Cerebrovascu lar accident p adela Not available 02/14/2023 11:51:27 Unspecified Relation Arthritis p adela [email or web address] Not available 02/14/2023 11:51:37 Unspecified Relation Hypertensive disorder p adela [email or web address] Not available 02/14/2023 11:51:51 Unspecified Relation Heart disease p adela Not available 02/14/2023 11:52:07 Unspecified Relation Malignant neoplastic disease p adela Not available 02/14/2023 11:52:24 Mother Malignant neoplastic disease [email or web address] Not available 11:52:24 Medical History No medical history recorded. Gynecological HistoryNo gynecological history recorded. Obstetrics History GPAL:G 0 P 0 0 0 0 Past Encounters Encounter ID Performer Location Encounter Start Date Encounter Closed Date Diagnosis/Indication Diagnosis SNOMED-CT Code Diagnosis ICD10 Code Diagnosis IMO Codes Diagnosis Note [id number] Mal Khan DPM [facility] [place] [address] [place] [address] 02/14/2023 11:10:34 02/14/2023 16:43:28 Closed fracture of navicular bone of foot 03685311 S92.251A mild avulsion fracture mildly displaced to the dorsal aspect of the central navicularX -rays reviewed todayConti nue crutches and a cam boot nonweightb earing for 2 weeksfollo w-up in 2 weeks for repeat x-rays Pain in right foot 87535 80085 78059 M79.671 as above [id number] Mal Khan DPM [facility] [place] [address] [place] [address] 02/28/2023 14:33:15 02/28/2023 16:12:05 Closed fracture of navicular bone of foot 35247455 S92.251A mild avulsion fracture mildly displaced to the dorsal aspect of the central navicularX -rays reviewed today -- No significan t signs of healingCon tinue cam boot 3 weeksfollo w-up in 3 weeks follow-up x-rays [id number] Mal Khan DPM [facility] [place] [address] [place] [address] 03/28/2023 09:12:44 03/28/2023 09:58:40 Closed fracture of navicular bone of foot 13451298 S92.251A mild avulsion fracture mildly displaced to the dorsal aspect of the central navicularX -rays reviewed today -- No significan t signs of healing Or changes in alignmentC ontinue cam boot 3-4weeksre viewed treatment options if the patient does not resolve her pain by next visit we will plan to surgically excise the piece of bonefollow -up in 3-4 weeks follow-up x-rays [id number] Mal Khan DPM [facility] [place] [address] [place] [address] 04/28/2023 10:52:46 04/28/2023 11:31:58 Closed fracture of navicular bone of foot 89119741 S92.251P mild avulsion intra-apolinar cular fracture mildly displaced to the dorsal aspect of the central navicularn o significan t signs of healingCon tinue cam bootRice therapyObt ain CT for surgical planningfo llow-up post CT to review and discuss treatment options surgically Pain in right foot 18903 19058 52807 M79.671 as above [id number] Mal Khan DPM [facility] [place] [address] [place] [address] 05/23/2023 16:59:50 05/25/2023 11:49:13 Closed fracture of navicular bone of foot 11330379 S92.251K mild avulsion intra-apolinar cular fracture mildly [...] scar, bone infection, loss of foot, CRPS. [id number] Mal Khan DPM [facility] [place] [address] [place] [address] 06/20/2023 17:32:00 06/21/2023 10:57:21 Closed fracture of navicular bone of foot 38357792 S92.251K surgery date June 17, 2023status post 3 daysdressi ngs changed and cleaned with ChloraPrep keep dressings clean dry and intact for 2 weeksconti nue minimal weight-gilberto ring to the heel onlyfollow -up in 2 weeks for suture removal, repeat x-rays in 2 weeks Postoperative visit 1836 54927 Z09 as above [id number] Mal Khan DPM [facility] [place] [address] [place] [address] 07/04/2023 17:11:17 07/05/2023 12:05:48 Closed fracture of navicular bone of foot 58147073 S92.251K surgery date June 17, 2023status post 2 weekssutur es removedSte ri-Strips appliedpat ient may shower no soakingfol low-up in 4 weeks for repeat x-rays Postoperative visit 1836 83870 Z09 status post 2 weeks open reduction internal fixation navicular, rightconti nue weight-gilberto ring to the heel only [id number] Mal Khan DPM [facility] [place] [address] [place] [address] 08/01/2023 17:04:41 08/09/2023 15:26:43 Postoperative visit 702832857 Z09 open reduction internal fixation navicular, rightnorma l shoe gear transition if has pain with normal shoe gear continue cam boot for 2-3 weeks Closed fra cture of navicular bone of foot 32032401 S92.251K surgery date June 17, 2023repeat x-rays reviewed with the patientFol low-up as needed Health Concerns Section Related Observation LastModified by Organization Detai ls LastModified Time None Recorded Concern Status LastModified by Organization Details LastModified Time None Recorded Advance Directives Directive None Recorded Payers Insurance Date Sequence Insurance Name Policy Number Policy Lin Covered Member ID Lin Member ID Guarantor Name 08/09/2023 1 [facility] [id number] Antonette Campbell [id number] Antonette Campbell 05/23/2023 1 [facility] [id number] Antonette Campbell [id number] Antonette Campbell Notes Date Note Type Note [...] foot for surgical planning. Mal Khan DPM [address] [facility], [facility] [address], [place], [address], [facility] [employer] 04/28/2023 11:17:35 05/23/2023 text/html . Patient is [...] Mal Khan DPM [address] [employer], [place], [address], [employer] 05/25/2023 09:42:35 06/20/2023 text/html ROS as noted in the HPI s/p navicular fracture orif, 3 days . [...] Khan DPM [address], [place], [address], [employer] 06/21/2023 09:24:00 07/04/2023 text/html . Patient is [...] other complaints. Mal Khan DPM [address], [facility] [address], [place], [address], [facility] [employer] [facility] 07/05/2023 09:42:09 08/01/2023 text/html . Patient is a 42-year-old female who returns the office for follow-up on closed fracture of the navicular bone. Patient had repeat x-rays which shows healed fracture with intact hardware without failure. Patient states her pain is resolved. Patient denies any other pedal complaints. Mal Khan DPM [address], [facility] [address], [place], [address], [facility] [employer] [facility] 08/09/2023 09:44:04 OBGyn Episode No OBEpisode recorded.
== END 2025-09-26 08:51 | disposition home or self-care (01) ==
LOC: ANHLAB 08:51
PROVIDERS: PCP Family Medicine; Visit Provider Family Medicine
DX: Z00.00 Encounter for general adult medical examination without abnormal findings (principal); E78.5 Hyperlipidemia, unspecified; E11.9 Type 2 diabetes mellitus without complications; E03.9 Hypothyroidism, unspecified; E55.9 Vitamin D deficiency, unspecified; D64.9 Anemia, unspecified; F41.9 Anxiety disorder, unspecified; F32.A Depression, unspecified; E66.9 Obesity, unspecified; Z68.38 Body mass index [BMI] 38.0-38.9, adult; Z79.899 Other long term (current) drug therapy
CPT/HCPCS: 36415; 80053; 80061; 83036; 84439; 84443; 85027